=== PATIENT | male | born 1980 | race Caucasian/White ===

== ENCOUNTER → 2016-03-17 | Outpatient (CLI) | payer OTHER ==
[~2016-03-17] MED LIST: AZIT250T5 PO; BACL10TA PO; CLON0.5T3 PO; CLR10 PO; CYCL1POW PO; ESOM20CA PO; LAMO100T16 PO; MELO15TA3 PO; MELO15TA4 PO; ONDA4TAB7 SL; ONDA8TAB12 PO; PANT1TAB48 PO; TRAM-10 PO
--- NOTE | 2016-03-17 17:47 | DIAGNOSTIC IMAGING REPORT ---
KUB CLINICAL HISTORY: R31.9 Hematuria pain COMPARISON STUDY: 04/24/2013 FINDINGS: Scoliosis of the lumbar spine. Mild nonobstructive ileus. No abnormal urinary tract calcifications within limitations of overlying bowel content. IMPRESSION: Negative study. Mild nonobstructive ileus. Electronically signed by: Toy Iraheta M.D. 03/17/2016 5:46 PM Dictated Date/Time: 03/17/2016 5:45 PM
[2016-03-17 18:14] LABS: BASO % 0.3 %; BASO ABS # 0.02 K/uL (0-0.2); COMPLETE YES; EOS % 2.8 %; HEMATOCRIT 42.4 % (42-52); IG% 0.5 %; LYMPH % 38.3 %; LYMPH ABS # 2.31 K/uL (1.2-3.4); MEAN CORPUSCULAR HGB CONC 33.7 g/dl (32-36); MEAN PLATELET VOLUME 11.8 fL (7.4-10.4); MONO % 8.3 %; NEUT % 49.8 %; PLATELET COUNT 169 K/uL (130-400); RED BLOOD COUNT 4.61 M/uL (4.7-6.1); WHITE BLOOD COUNT 6.03 K/uL (4.8-10.8)
[2016-03-17 18:47] LABS: ALT/SGPT 28 U/L (12-78); BLOOD UREA NITROGEN 27 mg/dl (7-18); BUN/CREATININE RATIO 30.8 (10-20); CALCIUM 9.5 mg/dl (8.5-10.1); CARBON DIOXIDE 27 mmol/L (21-32); CHLORIDE 106 mmol/L (98-107); CREATININE 0.87 mg/dl (0.60-1.40); GLUCOSE 89 mg/dl (70-99); POTASSIUM 3.7 mmol/L (3.5-5.1); SODIUM 142 mmol/L (136-145)
[2016-03-17 18:50] LABS: ALB/GLOB RATIO 0.9 (0.9-2); ALKALINE PHOSPHATASE 100 U/L (45-117); AST/SGOT 24 U/L (15-37)
== END | disposition home or self-care (01) ==
LOC: C.RAD 17:09
PROVIDERS: ATTEND Family Medicine
DX: R31.9 Hematuria, unspecified (principal)

== ENCOUNTER → 2016-05-18 | Outpatient (CLI) | payer OTHER ==
[~2016-05-18] MED LIST changes: +AZIT-60 PO; -AZIT250T5 PO
--- NOTE | 2016-05-18 14:17 | DIAGNOSTIC IMAGING REPORT ---
AP CHEST WITH RIGHT-SIDED RIB SERIES CLINICAL HISTORY: Rib deformity. FINDINGS: An AP chest radiograph with 4 additional views from a right-sided rib series is compared to study dated 03/19/11. The AP view is degraded by patient rotation. The cardiomediastinal silhouette is unremarkable. There are low lung volumes. The lungs and pleural spaces are clear. No pneumothorax is seen. There is no radiographic evidence of right-sided rib fracture on the rib series. The remainder of the bony thorax is grossly intact. There is moderate S-shaped spinal scoliosis which deforms the thoracic cage. Moderate fecal retention is noted in the right colon. IMPRESSION: 1. The lungs are clear. 2. There is no radiographic evidence of right-sided rib fracture. 3. Moderate S-shaped spinal scoliosis. Electronically signed by: Lew Hurley M.D. 05/18/2016 2:15 PM Dictated Date/Time: 05/18/2016 2:11 PM
== END | disposition home or self-care (01) ==
LOC: C.RADBC 12:06
PROVIDERS: ATTEND Family Medicine
DX: M95.4 Acquired deformity of chest and rib (principal); M41.9 Scoliosis, unspecified

== ENCOUNTER 2016-07-24 14:48 | Emergency (ER) | payer OTHER ==
[~2016-07-24] VITALS: Ht 172.7 cm; Wt 60.0 kg
[~2016-07-24 14:48] MED LIST changes: -AZIT-60 PO; -ESOM20CA PO; -MELO15TA4 PO; -ONDA8TAB12 PO
[2016-07-24 14:56] VITALS: TEMP 36.7; Ht 172.7 cm; Wt 60.0 kg
[2016-07-24] MEDS ORDERED: ESOM20CA PO (15:23)
[2016-07-24] MEDS ORDERED: ONDA8TAB12 PO (15:23)
[2016-07-24] MEDS ORDERED: MELO15TA4 PO (15:23)
[2016-07-24] MEDS ORDERED: KETOROLAC TROMETHAMINE 30 MG/ML VIAL IV STA (15:51)
[2016-07-24] MEDS ORDERED: TRAMADOL HCL 50 MG TAB PO STA (15:51)
[2016-07-24 16:19] LABS: BASO % 0.4 %; BASO ABS # 0.02 K/uL (0-0.2); COMPLETE YES; EOS % 3.9 %; HEMATOCRIT 37.6 % (42-52); IG% 0.4 %; LYMPH % 42.1 %; LYMPH ABS # 2.38 K/uL (1.2-3.4); MEAN CELL VOLUME 93.1 fL (80-100); MEAN CORPUSCULAR HEMOGLOBIN 30.9 pg (25-34); MEAN CORPUSCULAR HGB CONC 33.2 g/dl (32-36); MEAN PLATELET VOLUME 10.9 fL (7.4-10.4); MONO % 9.4 %; NEUT % 43.8 %; PLATELET COUNT 165 K/uL (130-400); RED BLOOD COUNT 4.04 M/uL (4.7-6.1); WHITE BLOOD COUNT 5.65 K/uL (4.8-10.8)
[2016-07-24 16:31] LABS: ZZURINE CULT IF INDIC CATH NO
[2016-07-24 16:33] LABS: URINE COLOR DK YELLOW
[2016-07-24 16:35] LABS: MANUAL MICROSCOPIC REQUIRED? NO; REVIEW REQ? NO; URINE APPEARANCE CLEAR (CLEAR); URINE SPECIFIC GRAVITY > 1.035 (1.000-1.030)
[2016-07-24 16:36] LABS: URINE BILIRUBIN NEG (NEG); URINE NITRITE NEG (NEG); UROBILINOGEN NEG (NEG)
[2016-07-24 16:37] LABS: BUN/CREATININE RATIO 35.1 (10-20); CREATININE 0.84 mg/dl (0.60-1.40); POTASSIUM 3.7 mmol/L (3.5-5.1)
[2016-07-24 17:52] LABS: CALCIUM 9.2 mg/dl (8.5-10.1)
--- NOTE | 2016-07-24 18:13 | DIAGNOSTIC IMAGING REPORT ---
LUMBAR SPINE CT CT DOSE: HISTORY: back pain TECHNIQUE: Multiaxial CT images of the lumbar spine were performed and reformatted in the sagittal and coronal plane without the use of contrast. COMPARISON: None. FINDINGS: Mild motion artifact. Moderate to severe levoscoliosis. Bilateral L5 spondylolysis with grade I spondylolisthesis. Vertebral body heights are maintained. No acute fractures identified. The visualized sacrum appears intact. No significant central canal narrowing by CT technique. Paraspinal soft tissues are unremarkable. Disc spaces are preserved. IMPRESSION: 1. No fracture or subluxation within the lumbar spine. 2. Moderate to severe levoscoliosis. 3. Bilateral L5 spondylolysis with grade I anterolisthesis. Electronically signed by: Israel Charles M.D. 07/24/2016 6:11 PM Dictated Date/Time: 07/24/2016 6:09 PM
--- NOTE | 2016-07-24 18:18 | DIAGNOSTIC IMAGING REPORT ---
ABDOMEN AND PELVIS CT WITHOUT CONTRAST CT DOSE: 1071.19 mGy.cm HISTORY: back pain/patient nonverbal TECHNIQUE: Multiaxial CT images of the abdomen and pelvis were performed without the use of intravenous and oral contrast according to the standard department stone protocol. COMPARISON STUDY: Abdomen and pelvis CT 03/20/2011. FINDINGS: Patchy areas of consolidation within the right middle and lower lobe. There are also multiple patchy groundglass opacities within the lung bases. This is consistent with pneumonia, possibly secondary to aspiration. No pneumoperitoneum. No pneumatosis. Levoscoliosis of the thoracolumbar spine. The unenhanced liver, spleen, adrenal glands, and kidneys are unremarkable. The pancreas is within normal limits. The gallbladder is not well visualized due to streak artifact from the patient's arms. There are surgical clips within the epigastric location. Motion artifact resulting in suboptimal evaluation of the bowel. The bladder is unremarkable. No retroperitoneal lymphadenopathy. No dilated loops of small bowel to suggest an obstruction. The appendix is not well visualized due to the motion artifact. Suboptimal evaluation for bowel pathology due to the lack of intravenous and oral contrast. Moderate to large amount well-formed stool seen within the colon. There are suggestion of mild thickening of the rectum. IMPRESSION: 1. Bibasilar airspace opacities consistent with a pneumonia. This is progressed in the interval. This could be due to aspiration. 2. There appears to be mild thickening of the rectum consistent with a nonspecific proctitis. 3. Levoscoliosis. 4.: Colorectal fecal retention. Electronically signed by: Israel Charles M.D. 07/24/2016 6:17 PM Dictated Date/Time: 07/24/2016 6:12 PM
[2016-07-24 18:32] VITALS: BP 107/58; PULSE 71; O2SAT 96
--- NOTE | 2016-07-24 18:38 | DIAGNOSTIC IMAGING REPORT ---
THORACIC SPINE 3 VIEWS HISTORY: back pain/history scoliosis COMPARISON: Chest 05/18/2016. FINDINGS: There is no fracture. No subluxation. S-shaped scoliosis of the thoracic spine. Patchy bibasilar airspace opacities. Surgical clips within the left upper quadrant. IMPRESSION: No fracture or subluxation within the thoracic spine. Moderate S-shaped scoliosis of the thoracic spine. Bibasilar airspace opacities consistent with a pneumonia. Electronically signed by: Israel Charles M.D. 07/24/2016 6:37 PM Dictated Date/Time: 07/24/2016 6:36 PM
[2016-07-24] MEDS ORDERED: AZIT-60 PO (18:53)
--- NOTE | 2016-07-24 18:54 | EMERGENCY ROOM VISIT NOTE ---
History First contact with patient: 15:26 Chief Complaint: BACK PAIN Stated Complaint: BACK PAIN History of Present Illness The patient is a 36 year old male who presents to the Emergency Room with complaints of back pain. The patient is nonverbal. 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 The patient does not ambulate on his own and he is incontinent. The patient also has a history of scoliosis. The patient is accompanied by his mother and grandmother. They are his caretakers. They state that over the last 2 weeks he has had increased back pain. They normally can tell when he has back pain he leans to the right in his wheelchair and grimaces. They have been giving him his tramadol and muscle relaxer without any relief. He had 50 mg of tramadol and a baclofen just prior to coming to the emergency room today. They have not noticed any blood in his diapers. He has grimaced when he has been urinating. The patient has a history of UTI but no history of kidney stone. The patient does not have a fever. Review of Systems 6 system review was performed and was negative unless stated otherwise in history of present illness. Past Medical/Surgical History Medical Problems: (1) Anemia (2) Fundoplication (3) Gastroesophageal reflux disease (4) Mental retardation (5) MGUS (monoclonal gammopathy of unknown significance) (6) Seizure disorder (7) Thrombocytopenia Social History Smoking Status: Never Smoker Alcohol Use: none Marital Status: single Housing Status: lives with family Current/Historical Medications Scheduled Baclofen (Lioresal), 10 MG PO HS Clonazepam (Klonopin), 0.5 MG PO QID Esomeprazole Magnesium (Nexium), 20 MG PO BID Lamotrigine (Lamictal), 100 MG PO BID Meloxicam (Mobic), 15 MG PO DAILY Ondansetron Hcl (Zofran), 8 MG PO PRN Tramadol (Ultram), 50 MG PO TID Allergies Coded Allergies: Morphine (Verified Allergy, Mild, 07/24/16) SHALLOW RESP POLLEN (Verified Allergy, Unknown, HAY FEVER, 07/24/16) Diazepam (Verified Adverse Reaction, Mild, "MAKES HIM WILD", 07/24/16) Physical Exam Vital Signs Date Time Temp Pulse Resp B/P (MAP) Pulse Ox O2 Delivery O2 Flow Rate FiO2 07/24/16 18:32 71 12 107/58 96 07/24/16 16:55 78 14 110/58 96 07/24/16 14:56 36.7 89 18 115/77 96 Room Air Physical Exam GENERAL: 36-year-old white male is nonverbal but appears in no acute distress. MENTAL Status:. The patient is awake and alert. NECK: Supple, no lymphadenopathy noted. No carotid bruits noted. LUNGS: Clear auscultation without wheezes rales or rhonchi. CARDIAC: Regular rate and rhythm without murmur. Pulses is full and equal throughout. BACK: No CVA tenderness noted ABDOMEN: Positive bowel sounds all 4 quadrants. Soft, nontender to palpation without organomegaly or masses. LUMBAR SPINE: Shaped scoliosis noted. The patient does not grimace when I palpate the spine or the paravertebral regions. Limited exam secondary the patient's health status. Medical Decision & Procedures ER Provider Diagnostic Interpretation: THORACIC SPINE 3 VIEWS HISTORY: back pain/history scoliosis COMPARISON: Chest 05/18/2016. FINDINGS: There is no fracture. No subluxation. S-shaped scoliosis of the thoracic spine. Patchy bibasilar airspace opacities. Surgical clips within the left upper quadrant. IMPRESSION: No fracture or subluxation within the thoracic spine. Moderate S-shaped scoliosis of the thoracic spine. Bibasilar airspace opacities consistent with a pneumonia. Electronically signed by: Israel Charles M.D. 07/24/2016 6:37 PM Dictated Date/Time: 07/24/2016 6:36 PM ABDOMEN AND PELVIS CT WITHOUT CONTRAST CT DOSE: 1071.19 mGy.cm HISTORY: back pain/patient nonverbal TECHNIQUE: Multiaxial CT images of the abdomen and pelvis were performed without the use of intravenous and oral contrast according to the standard department stone protocol. COMPARISON STUDY: Abdomen and pelvis CT 03/20/2011. FINDINGS: Patchy areas of consolidation within the right middle and lower lobe. There are also multiple patchy groundglass opacities within the lung bases. This is consistent with pneumonia, possibly secondary to aspiration. No pneumoperitoneum. No pneumatosis. Levoscoliosis of the thoracolumbar spine. The unenhanced liver, spleen, adrenal glands, and kidneys are unremarkable. The pancreas is within normal limits. The gallbladder is not well visualized due to streak artifact from the patient's arms. There are surgical clips within the epigastric location. Motion artifact resulting in suboptimal evaluation of the bowel. The bladder is unremarkable. No retroperitoneal lymphadenopathy. No dilated loops of small bowel to suggest an obstruction. The appendix is not well visualized due to the motion artifact. Suboptimal evaluation for bowel pathology due to the lack of intravenous and oral contrast. Moderate to large amount well-formed stool seen within the colon. There are suggestion of mild thickening of the rectum. IMPRESSION: 1. Bibasilar airspace opacities consistent with a pneumonia. This is progressed in the interval. This could be due to aspiration. 2. There appears to be mild thickening of the rectum consistent with a nonspecific proctitis. 3. Levoscoliosis. 4.: Colorectal fecal retention. Electronically signed by: Israel Charles M.D. 07/24/2016 6:[address] DOSE: HISTORY: back pain TECHNIQUE: Multiaxial CT images of the lumbar spine were performed and reformatted in the sagittal and coronal plane without the use of contrast. COMPARISON: None. FINDINGS: Mild motion artifact. Moderate to severe levoscoliosis. Bilateral L5 spondylolysis with grade I spondylolisthesis. Vertebral body heights are maintained. No acute fractures identified. The visualized sacrum appears intact. No significant central canal narrowing by CT technique. Paraspinal soft tissues are unremarkable. Disc spaces are preserved. IMPRESSION: 1. No fracture or subluxation within the lumbar spine. 2. Moderate to severe levoscoliosis. 3. Bilateral L5 spondylolysis with grade I anterolisthesis. Electronically signed by: Israel Charles M.D. 07/24/2016 6:11 PM Laboratory Results 07/24/16 16:10 Red Blood Count 4.04, Mean Corpuscular Volume 93.1, Mean Corpuscular Hemoglobin 30.9, Mean Corpuscular Hemoglobin Concent 33.2, Mean Platelet Volume 10.9, Neutrophils (%) (Auto) 43.8, Lymphocytes (%) (Auto) 42.1, Monocytes (%) (Auto) 9.4, Eosinophils (%) (Auto) 3.9, Basophils (%) (Auto) 0.4, Neutrophils # (Auto) 2.48, Lymphocytes # (Auto) 2.38, Monocytes # (Auto) 0.53, Eosinophils # (Auto) 0.22, Basophils # (Auto) 0.02 07/24/16 16:10 Test 07/24/16 16:05 07/24/16 16:10 Urine Color DK YELLOW Urine Appearance CLEAR (CLEAR) Urine pH 5.0 (4.5-7.5) Urine Specific [place] > 1.035 (1.000-1.030) Urine Protein NEG (NEG) Urine Glucose (UA) NEG (NEG) Urine Ketones TRACE (NEG) Urine Occult Blood NEG (NEG) Urine Nitrite NEG (NEG) Urine Bilirubin NEG (NEG) Urine Urobilinogen NEG (NEG) Urine Leukocyte Esterase NEG (NEG) White Blood Count 5.65 K/uL (4.8-10.8) Red Blood Count 4.04 M/uL (4.7-6.1) Hemoglobin 12.5 g/dL (14.0-18.0) Hematocrit 37.6 % (42-52) Mean Corpuscular Volume 93.1 fL (80-100) Mean Corpuscular Hemoglobin 30.9 pg (25-34) Mean Corpuscular Hemoglobin Concent 33.2 g/dl (32-36) Platelet Count 165 K/uL (130-400) Mean Platelet Volume 10.9 fL (7.4-10.4) Neutrophils (%) (Auto) 43.8 % Lymphocytes (%) (Auto) 42.1 % Monocytes (%) (Auto) 9.4 % Eosinophils (%) (Auto) 3.9 % Basophils (%) (Auto) 0.4 % Neutrophils # (Auto) 2.48 K/uL (1.4-6.5) Lymphocytes # (Auto) 2.38 K/uL (1.2-3.4) Monocytes # (Auto) 0.53 K/uL (0.11-0.59) Eosinophils # (Auto) 0.22 K/uL (0-0.5) Basophils # (Auto) 0.02 K/uL (0-0.2) RDW Standard Deviation 44.8 fL (36.4-46.3) RDW Coefficient of Variation 13.1 % (11.5-14.5) Immature Granulocyte % (Auto) 0.4 % Immature Granulocyte # (Auto) 0.02 K/uL (0.00-0.02) Anion Gap 8.0 mmol/L (3-11) Est Creatinine Clear Calc Drug Dose 102.2 ml/min Estimated GFR () 129.6 Estimated GFR (Non- 111.9 BUN/Creatinine Ratio 35.1 (10-20) Calcium Level 9.2 mg/dl (8.5-10.1) Medications Administered Medications (Trade) Dose Ordered Sig/Leana Route Start Time Stop Time Status Last Admin Dose Admin Ketorolac Tromethamine (Toradol Inj) 30 mg NOW STAT IV 07/24/16 15:51 07/24/16 15:55 DC 07/24/16 16:12 30 MG Tramadol HCl (Ultram Tab) 50 mg NOW STAT PO 07/24/16 15:51 07/24/16 15:55 DC 07/24/16 16:44 50 MG ED Course The patient's EMR and medication list were reviewed. The patient was catheterized to obtain a urinalysis which was negative. IV access was obtained. CBC differential, renal profile was ordered. X-ray of the thoracic and lumbar spine was ordered and interpreted by the radiologist and myself as above without any acute bony abnormality.. CT stone survey was ordered and interpreted by the radiologist as above with findings consistent with bibasilar pneumonia.. The patient was given Toradol 30 mg IV and tramadol 50 mg by mouth. Labs are reviewed and were unremarkable. White count was normal. The patient's mother was informed of the findings. The patient was given Zithromax 500 mg by mouth while in the emergency room. The patient was discharged home in stable condition. Medical Decision Differential diagnosis include pain from scoliosis, fracture, muscle strain, kidney stones, UTI, pyelonephritis, pleuritic chest pain The decision was made to evaluate with a CT since the patient is nonverbal. Pneumonia was not in the differential but was noted on CAT scan. I discussed with the mother the findings and she stated that he normally sits up to eat. He did have a sore throat a week and a half ago. Impression Primary Impression: Pneumonia Departure Information Dispostion Home / Self-Care Condition GOOD Prescriptions Azithromycin (ZITHROMAX) 250 Mg Tab 250 MG PO DAILY, #4 TAB Prov: Nayla Iraheta PA-C 07/24/16 Referrals Filippo Love D.O.[facility] (PCP) Forms HOME CARE DOCUMENTATION FORM, IMPORTANT VISIT INFORMATION Patient Instructions ED Pneumonia Adult, My [facility] Additional Instructions Take Zithromax as prescribed. May increase dose of tramadol to 100 mg 3 times a day. If needed. Follow-up with your family doctor Wednesday or Wednesday for reevaluation. Problem Qualifiers Primary Impression: Pneumonia Pneumonia type: due to unspecified organism Laterality: bilateral Lung location: lower lobe of lung Qualified Codes: J18.9 - Pneumonia, unspecified organism
[2016-07-24] MEDS ORDERED: AZITHROMYCIN 250 MG TAB PO ONE (19:00)
== END 2016-07-24 19:08 | disposition home or self-care (01) ==
LOC: C.EDB 14:50 → C.EDC 19:08
DX: J18.9 Pneumonia, unspecified organism (principal); Q93.5 Other deletions of part of a chromosome; F79 Unspecified intellectual disabilities; G40.909 Epilepsy, unspecified, not intractable, without status epilepticus; K21.9 Gastro-esophageal reflux disease without esophagitis; D47.2 Monoclonal gammopathy; D69.6 Thrombocytopenia, unspecified; Z79.899 Other long term (current) drug therapy

== ENCOUNTER → 2016-09-22 | Outpatient (CLI) | payer OTHER ==
[~2016-09-22] MED LIST changes: -CLR10 PO; -CYCL1POW PO; +ESOM20CA PO; -MELO15TA3 PO; +MELO15TA4 PO; -ONDA4TAB7 SL; +ONDA8TAB12 PO; -PANT1TAB48 PO
[2016-09-22 17:39] LABS: BASO % 0.5 %; BASO ABS # 0.03 K/uL (0-0.2); COMPLETE YES; EOS % 2.3 %; HEMATOCRIT 40.8 % (42-52); IG% 0.2 %; LYMPH % 36.7 %; LYMPH ABS # 2.26 K/uL (1.2-3.4); MEAN CELL VOLUME 93.4 fL (80-100); MEAN CORPUSCULAR HEMOGLOBIN 31.4 pg (25-34); MEAN CORPUSCULAR HGB CONC 33.6 g/dl (32-36); MEAN PLATELET VOLUME 12.7 fL (7.4-10.4); MONO % 9.6 %; NEUT % 50.7 %; PLATELET COUNT 147 K/uL (130-400); RED BLOOD COUNT 4.37 M/uL (4.7-6.1); WHITE BLOOD COUNT 6.15 K/uL (4.8-10.8)
[2016-09-22 17:42] LABS: BLOOD UREA NITROGEN 26 mg/dl (7-18); CREATININE 0.91 mg/dl (0.60-1.40); GLUCOSE 86 mg/dl (70-99)
[2016-09-22 17:43] LABS: ALT/SGPT 26 U/L (12-78); AST/SGOT 21 U/L (15-37); CALCIUM 9.4 mg/dl (8.5-10.1); CARBON DIOXIDE 30 mmol/L (21-32); CHLORIDE 106 mmol/L (98-107); POTASSIUM 3.9 mmol/L (3.5-5.1); SODIUM 140 mmol/L (136-145)
[2016-09-22 17:48] LABS: ALKALINE PHOSPHATASE 87 U/L (45-117)
== END | disposition home or self-care (01) ==
LOC: C.LABPBG 13:17
PROVIDERS: ATTEND Family Medicine
DX: D47.2 Monoclonal gammopathy (principal)

== ENCOUNTER 2017-02-27 14:24 | Emergency (ER) | payer OTHER ==
[~2017-02-27] VITALS: Ht 172.7 cm; Wt 60.0 kg
[~2017-02-27 14:24] MED LIST changes: -ESOM20CA PO; -MELO15TA4 PO; -ONDA8TAB12 PO
[2017-02-27 14:28] VITALS: BP 102/59; TEMP 36.7; Ht 172.7 cm; Wt 60.0 kg
--- NOTE | 2017-02-27 14:59 | EMERGENCY ROOM VISIT NOTE ---
History Report prepared by Krystle: Nasreen Lo Under the Supervision of: Dr. Amando Pelaez M.D. First contact with patient: 14:46 Chief Complaint: FEVER Stated Complaint: NOT FELLING WELL AND FEVER History of Present Illness The patient is a 37 year old male who presents to the Emergency Room with complaints of a persistent fever since this morning. He is accompanied by his Mother. Mom reports he has had congestion for the past 1 week. Last night he complained of a sore throat, and this morning he developed a fever, which was 101 degrees when checked at home. He last had 1000 mg of Tylenol at 1300 today. Mom denies any cough. She reports the patient has been eating and drinking and normally but seems to be generally fatigued. The patient did receive a flu shot this year. Mom denies any recent sick contacts. She also denies any nausea, vomiting or diarrhea. The patient has a history of Angelman's syndrome, a seizure disorder, but Mom denies any recent seizures. This afternoon Mom took the patient to [facility], but states they did not accept his insurance, so she brought him here. Mom denies any recent redness or swelling of the arms or legs. Source of History: parent (Mother) History Limited By: other (patient is nonverbal) Onset: This morning Position: other (global) Timing: other (persistent) Modifying Factors (Relieving): tylenol Associated Symptoms: + sorethroat, No cough, No nausea, No vomiting, No diarrhea Review of Systems See HPI for pertinent positives & negatives. A total of 10 systems reviewed and were otherwise negative. Past Medical & Surgical Medical Problems: (1) Anemia (2) Fundoplication (3) Gastroesophageal reflux disease (4) Mental retardation (5) MGUS (monoclonal gammopathy of unknown significance) (6) Seizure disorder (7) Thrombocytopenia Old medical records were reviewed. Nurse's notes were reviewed and I agree with. Social History Smoking Status: Never Smoker Alcohol Use: none Drug Use: none Marital Status: single Housing Status: lives with family Occupation Status: unemployed Current/Historical Medications Scheduled Amoxicillin & Pot Clavulanate (Augmentin 875-125 mg), 875 MG PO BID Baclofen (Lioresal), 10-20 MG PO HS Clonazepam (Klonopin), 0.5 MG PO QID Esomeprazole Magnesium (Nexium), 20 MG PO BID Lamotrigine (Lamictal), 100 MG PO BID Meloxicam (Mobic), 15 MG PO DAILY Ondansetron Hcl (Zofran), 8 MG PO PRN Tramadol (Ultram), 50 MG PO TID Allergies Coded Allergies: Morphine (Verified Allergy, Mild, 07/24/16) SHALLOW RESP POLLEN (Verified Allergy, Unknown, HAY FEVER, 07/24/16) Diazepam (Verified Adverse Reaction, Mild, "MAKES HIM WILD", 07/24/16) Physical Exam Vital Signs Date Time Temp Pulse Resp B/P (MAP) Pulse Ox O2 Delivery O2 Flow Rate FiO2 02/27/17 17:07 60 20 98 02/27/17 14:28 36.7 58 20 102/59 98 Room Air Physical Exam General: Non-ill appearing young male who has baseline Angelman's syndrome, opens eyes, smiles and is interactive but otherwise nonverbal, baseline contractures of arms and legs. HEENT: Normal cephalic atraumatic. Pupils are equal round and reactive to light. Extraocular movements are intact. Oropharynx is pink with moist mucous membranes. No swelling of the mouth lips or tongue. Neck: Supple with a midline trachea. No meningeal signs or stiffness, no JVD or bruits. No Stridor. Chest: Clear to auscultation bilaterally. No wheezes or rhonchi. No increased work of breathing. Heart: regular rate and rhythm. Abdomen: Soft nontender, nondistended without rebound guarding or rigidity. Extremities: No cyanosis clubbing or edema. No calf tenderness or assymetry Spine/Back. Non tender to palpation. No CVA tenderness Skin: Good turgor without rashes. Neurologic exam: Cranial nerves two through 12 are intact. Motor and sensation are intact and symmetrical throughout. Medical Decision & Procedures ER Provider Diagnostic Interpretation: Radiology results as stated below per my review and radiologist interpretation: SINGLE VIEW CHEST CLINICAL HISTORY: Atypical chest pain. FINDINGS: An AP, portable, upright chest radiograph is compared to study dated 03/19/2011. The examination is degraded by portable technique and patient rotation. The cardiomediastinal silhouette is unremarkable. There is chronic elevation of the right hemidiaphragm and bibasilar atelectasis. No airspace consolidation or large pleural effusion is identified. No pneumothorax is seen. The skeletal structures appear osteopenic. There is moderate S-shaped thoracal lumbar scoliosis. Surgical clips are seen in the left upper quadrant. IMPRESSION: No acute cardiopulmonary abnormality. Electronically signed by: Lew Hurley M.D. 02/27/2017 3:11 PM Laboratory Results 02/27/17 15:31 Red Blood Count 4.55, Mean Corpuscular Volume 94.3, Mean Corpuscular Hemoglobin 31.6, Mean Corpuscular Hemoglobin Concent 33.6, Mean Platelet Volume 11.8, Neutrophils (%) (Auto) 53.7, Lymphocytes (%) (Auto) 35.3, Monocytes (%) (Auto) 7.6, Eosinophils (%) (Auto) 2.7, Basophils (%) (Auto) 0.4, Neutrophils # (Auto) 4.18, Lymphocytes # (Auto) 2.74, Monocytes # (Auto) 0.59, Eosinophils # (Auto) 0.21, Basophils # (Auto) 0.03 02/27/17 15:31 Test 02/27/17 15:31 White Blood Count 7.77 K/uL (4.8-10.8) Red Blood Count 4.55 M/uL (4.7-6.1) Hemoglobin 14.4 g/dL (14.0-18.0) Hematocrit 42.9 % (42-52) Mean Corpuscular Volume 94.3 fL (80-100) Mean Corpuscular Hemoglobin 31.6 pg (25-34) Mean Corpuscular Hemoglobin Concent 33.6 g/dl (32-36) Platelet Count 148 K/uL (130-400) Mean Platelet Volume 11.8 fL (7.4-10.4) Neutrophils (%) (Auto) 53.7 % Lymphocytes (%) (Auto) 35.3 % Monocytes (%) (Auto) 7.6 % Eosinophils (%) (Auto) 2.7 % Basophils (%) (Auto) 0.4 % Neutrophils # (Auto) 4.18 K/uL (1.4-6.5) Lymphocytes # (Auto) 2.74 K/uL (1.2-3.4) Monocytes # (Auto) 0.59 K/uL (0.11-0.59) Eosinophils # (Auto) 0.21 K/uL (0-0.5) Basophils # (Auto) 0.03 K/uL (0-0.2) RDW Standard Deviation 42.1 fL (36.4-46.3) RDW Coefficient of Variation 12.4 % (11.5-14.5) Immature Granulocyte % (Auto) 0.3 % Immature Granulocyte # (Auto) 0.02 K/uL (0.00-0.02) Anion Gap 5.0 mmol/L (3-11) Est Creatinine Clear Calc Drug Dose 94.4 ml/min Estimated GFR () 125.1 Estimated GFR (Non- 108.0 BUN/Creatinine Ratio 26.0 (10-20) Calcium Level 9.7 mg/dl (8.5-10.1) Total Bilirubin 0.2 mg/dl (0.2-1) Direct Bilirubin < 0.1 mg/dl (0-0.2) Aspartate Amino Transf (AST/SGOT) 23 U/L (15-37) Alanine Aminotransferase (ALT/SGPT) 27 U/L (12-78) Alkaline Phosphatase 88 U/L (45-117) Total Protein 8.2 gm/dl (6.4-8.2) Albumin 4.0 gm/dl (3.4-5.0) Lipase 156 U/L (73-393) Influenza Type A Antigen Neg for Influ A (NEG) Influenza Type B Antigen Neg for Influ B (NEG) Laboratory studies as stated above per my review. ED Course 1448: Past medical records reviewed. The patient was evaluated in room C7, and a complete history and physical examination were performed. 1630: I reevaluated the patient. He appears comfortable. I discussed his results so far with his Mother and she verbalized complete understanding and agreement. 1645: Augmentin 875 mg 1 homepack PO. Medical Decision The differential diagnoses considered include pneumonia, sinusitis, influenza, URI and electrolyte or metabolic abnormality. This patient comes in as described above. He has a history of Angelman syndrome and his mother says that he had a fever today. He had some nasal congestion. He is difficult to evaluate. He does not appear to be toxic. He is afebrile here. IV access established blood work was obtained. Chest x-ray does not show any evidence of infection influenza was negative. His tympanic membranes are normal appearing. He has nothing to suggest meningitis or sepsis. He has no acute electrolyte or metabolic abnormalities. I talked to his mother .he has had some sinus symptoms. I will put him on antibiotics and will also cover strep and ENT type infections. He was given Augmentin 875 mg twice a day. He should return if: worsening of symptoms, any new problems or concerns. Follow-up with his doctor Wednesday for recheck. Medication Reconcilliation Current Medication List: was personally reviewed by me Blood Pressure Screening Patient's blood pressure: Low blood pressure Impression Primary Impression: Sinusitis Additional Impression: URI (upper respiratory infection) Scribe Attestation The scribe's documentation has been prepared under my direction and personally reviewed by me in its entirety. I confirm that the note above accurately reflects all work, treatment, procedures, and medical decision making performed by me. Departure Information Dispostion Home / Self-Care Prescriptions Amoxicillin & Pot Clavulanate (Augmentin 875-125 mg) 1 Tab Tab 875 MG PO BID for 7 Days, #14 TAB Prov: Amando Pelaez M.D. 02/27/17 Referrals Becki Cronin DO (PCP) Patient Instructions My [facility] Additional Instructions Rest Drink plenty of fluids Use Augmentin 875 mg twice a day for 7 days Return if: Worsening of symptoms, not tolerating fluids, any new problems or concerns Follow-up with your doctor Wednesday for recheck or return here over the weekend if symptoms worsen Problem Qualifiers
--- NOTE | 2017-02-27 15:12 | DIAGNOSTIC IMAGING REPORT ---
SINGLE VIEW CHEST CLINICAL HISTORY: Atypical chest pain. FINDINGS: An AP, portable, upright chest radiograph is compared to study dated 03/19/2011. The examination is degraded by portable technique and patient rotation. The cardiomediastinal silhouette is unremarkable. There is chronic elevation of the right hemidiaphragm and bibasilar atelectasis. No airspace consolidation or large pleural effusion is identified. No pneumothorax is seen. The skeletal structures appear osteopenic. There is moderate S-shaped thoracal lumbar scoliosis. Surgical clips are seen in the left upper quadrant. IMPRESSION: No acute cardiopulmonary abnormality. Electronically signed by: Lew Hurley M.D. 02/27/2017 3:11 PM Dictated Date/Time: 02/27/2017 3:10 PM
[2017-02-27] MEDS ORDERED: MELO15TA4 PO (15:23)
[2017-02-27] MEDS ORDERED: ESOM20CA PO (15:23)
[2017-02-27] MEDS ORDERED: ONDA8TAB12 PO (15:23)
[2017-02-27 15:43] LABS: BASO % 0.4 %; BASO ABS # 0.03 K/uL (0-0.2); EOS % 2.7 %; EOS ABS # 0.21 K/uL (0-0.5); HEMATOCRIT 42.9 % (42-52); HEMOGLOBIN 14.4 g/dL (14.0-18.0); IG# 0.02 K/uL (0.00-0.02); LYMPH % 35.3 %; LYMPH ABS # 2.74 K/uL (1.2-3.4); MEAN CELL VOLUME 94.3 fL (80-100); MEAN CORPUSCULAR HEMOGLOBIN 31.6 pg (25-34); MEAN CORPUSCULAR HGB CONC 33.6 g/dl (32-36); MEAN PLATELET VOLUME 11.8 fL (7.4-10.4); MONO % 7.6 %; MONO ABS # 0.59 K/uL (0.11-0.59); NEUT % 53.7 %; NEUT ABS # 4.18 K/uL (1.4-6.5); PLATELET COUNT 148 K/uL (130-400); RED CELL DISTRIBUTION WIDTH CV 12.4 % (11.5-14.5); RED CELL DISTRIBUTION WIDTH SD 42.1 fL (36.4-46.3); WHITE BLOOD COUNT 7.77 K/uL (4.8-10.8)
[2017-02-27 16:00] LABS: ALT/SGPT 27 U/L (12-78); BLOOD UREA NITROGEN 23 mg/dl (7-18); CALCIUM 9.7 mg/dl (8.5-10.1); CARBON DIOXIDE 31 mmol/L (21-32); GLUCOSE 91 mg/dl (70-99); LIPASE 156 U/L (73-393); POTASSIUM 4.1 mmol/L (3.5-5.1); SODIUM 138 mmol/L (136-145)
[2017-02-27 16:03] LABS: ALKALINE PHOSPHATASE 88 U/L (45-117); AST/SGOT 23 U/L (15-37); TOTAL PROTEIN 8.2 gm/dl (6.4-8.2)
[2017-02-27 16:25] LABS: INFLUENZA B ANTIGEN Neg for Influ B (NEG)
[2017-02-27] MEDS ORDERED: AMOXICIL/CLAVU 875MG HOME PACK PO ONE (16:45)
[2017-02-27] MEDS ORDERED: AMOX875T PO (16:46)
[2017-02-27 17:07] VITALS: PULSE 60; O2SAT 98
== END 2017-02-27 17:12 | disposition home or self-care (01) ==
LOC: C.EDB 14:26 → C.EDC 17:12
DX: J32.9 Chronic sinusitis, unspecified (principal); J06.9 Acute upper respiratory infection, unspecified; F79 Unspecified intellectual disabilities; G40.909 Epilepsy, unspecified, not intractable, without status epilepticus; D47.2 Monoclonal gammopathy; Z79.899 Other long term (current) drug therapy

== ENCOUNTER → 2017-09-27 | Outpatient (CLI) | payer OTHER ==
[~2017-09-27] MED LIST changes: -CLON0.5T3 PO; +ESOM20CA PO; +KLN/5 PO; +MELO-84 PO; +ONDA8TAB12 PO
[2017-09-27 16:58] LABS: BASO % 0.2 %; BASO ABS # 0.01 K/uL (0-0.2); EOS % 2.9 %; EOS ABS # 0.15 K/uL (0-0.5); HEMATOCRIT 41.4 % (42-52); HEMOGLOBIN 13.6 g/dL (14.0-18.0); IG# 0.01 K/uL (0.00-0.02); LYMPH % 45.8 %; LYMPH ABS # 2.36 K/uL (1.2-3.4); MEAN CELL VOLUME 93.5 fL (80-100); MEAN CORPUSCULAR HEMOGLOBIN 30.7 pg (25-34); MEAN CORPUSCULAR HGB CONC 32.9 g/dl (32-36); MEAN PLATELET VOLUME 12.3 fL (7.4-10.4); MONO ABS # 0.41 K/uL (0.11-0.59); NEUT % 42.9 %; NEUT ABS # 2.21 K/uL (1.4-6.5); PLATELET COUNT 181 K/uL (130-400); RED CELL DISTRIBUTION WIDTH SD 44.8 fL (36.4-46.3); WHITE BLOOD COUNT 5.15 K/uL (4.8-10.8)
[2017-09-27 17:24] LABS: ALBUMIN 4.1 gm/dl (3.4-5.0); ALKALINE PHOSPHATASE 92 U/L (45-117); ALT/SGPT 31 U/L (12-78); AST/SGOT 19 U/L (15-37); BLOOD UREA NITROGEN 28 mg/dl (7-18); CALCIUM 9.4 mg/dl (8.5-10.1); CARBON DIOXIDE 27 mmol/L (21-32); GLUCOSE 103 mg/dl (70-99); POTASSIUM 3.9 mmol/L (3.5-5.1); SODIUM 139 mmol/L (136-145); TOTAL PROTEIN 8.2 gm/dl (6.4-8.2)
== END | disposition home or self-care (01) ==
LOC: C.LABPBG 15:29
PROVIDERS: ATTEND Family Medicine
DX: Q93.5 Other deletions of part of a chromosome (principal); G40.909 Epilepsy, unspecified, not intractable, without status epilepticus; D47.2 Monoclonal gammopathy

== ENCOUNTER 2020-01-05 10:41 | Observation (INO) ==
[2020-01-05 11:49] LABS: Basophils # (auto) 0.01 K/uL (0-0.2); Basophils % (auto) 0.1 %; Eosinophils # (auto) 0.08 K/uL (0-0.5); Eosinophils % (auto) 0.4 %; Hematocrit (blood only) 38.5 % (42-52); Hemoglobin 12.8 g/dL (14.0-18.0); Immature Granulocytes # (auto) 0.05 K/uL (0.00-0.02); Immature Granulocytes % (auto) 0.3 %; Lymphocytes # (auto) 1.63 K/uL (1.2-3.4); Lymphocytes % (auto) 8.4 %; Mean Corpuscular Hemoglobin 31.1 pg (25-34); Mean Corpuscular Hgb Conc 33.2 g/dL (32-36); Mean Corpuscular Volume 93.4 fL (80-100); Mean Platelet Volume 10.9 fL (7.4-10.4); Monocytes # (auto) 1.42 K/uL (0.11-0.59); Monocytes % (auto) 7.3 %; Neutrophils # (auto) 16.22 K/uL (1.4-6.5); Neutrophils % (auto) 83.5 %; Platelet Count 191 K/uL (130-400); RDW Coefficient of Variation 12.6 % (11.5-14.5); RDW Standard Deviation 42.8 fL (36.4-46.3); Red Blood Count 4.12 M/uL (4.7-6.1); White Blood Count 19.41 K/uL (4.8-10.8)
[2020-01-05 11:56] LABS: Appearance Urine Cloudy (Clear); Bacteria Urine Automated 3+ (Negative); Bilirubin Urine Negative (Negative); Blood Urine 3+ (Negative); Color Urine Dark Yellow; Glucose Urine UA Negative (Negative); Ketones Urine Negative (Negative); Leukocyte Esterase Urine 2+ (Negative); Nitrite Urine Positive (Negative); Protein Urine 1+ (Negative); Specific Gravity Urine 1.037 (1.000-1.030); Urobilinogen Urine Negative (Negative); WBC Urine Automated >30 /hpf (0-5); pH Urine 5.5 (4.5-7.5)
[2020-01-05] MEDS ORDERED: SULFAMETHOXAZOLE/TRIMETHOPRIM DS 800/160MG TAB PO ONE (11:56)
[2020-01-05] MEDS ORDERED: cefTRIAXone SODIUM 2,000 MG/70 ML BAG IV STA (11:56)
[2020-01-05 12:06] LABS: Alanine Aminotransferase 47 U/L (12-78); Albumin Level 3.4 gm/dl (3.4-5.0); Aspartate Aminotransferase 30 U/L (15-37); BUN Creatinine Ratio 30.2 (10-20); Blood Urea Nitrogen 24 mg/dl (7-18); Calcium 9.7 mg/dl (8.5-10.1); Carbon Dioxide 31 mmol/L (21-32); Chloride 102 mmol/L (98-107); Est GFR (African American) 129.5; Est GFR (Non-African American) 111.7; Glucose 107 mg/dl (70-99); Lipase 92 U/L (73-393); Potassium 3.9 mmol/L (3.5-5.1); Sodium 137 mmol/L (136-145)
[2020-01-05 12:09] LABS: Albumin Globulin Ratio 0.7 (0.9-2); Alkaline Phosphatase 121 U/L (45-117); Bilirubin,Total 0.2 mg/dl (0.2-1); Globulin 5.1 gm/dl (2.5-4.0); Total Protein 8.5 gm/dl (6.4-8.2)
[2020-01-05 12:12] LABS: Mucus Urine Present (None Prsent)
[2020-01-05 12:13] LABS: RBC Urine Automated >30 /hpf (0-4)
--- NOTE | 2020-01-05 12:38 | Ultrasound Report ---
TESTICULAR ULTRASOUND HISTORY: Left scrotal swelling. Pt c/o scrotal pain COMPARISON: None. FINDINGS: Right testis: 2.3 x 2.2 x 2.0 cm. There are no intratesticular masses. Normal color flow. No hydrocel e. The epididymis is unremarkable. Left testis: 4.0 x 3.2 x 3.3 cm. No testicular masses. Complex septated moderate hydrocele. Heterogen eous and thickened epididymis. There is increased color flow within the left epididymis and left test is. IMPRESSION: 1. Above findings consistent with left-sided epididymoorchitis. There is a complex moderate left hydr ocele/pyocele. 2. Normal right testis. ACT 112: Negative or not required by law. Electronically signed by: Israel Charles M.D. 01/05/2020 12:37 PM
[2020-01-05] MEDS ORDERED: PIPERACILL/TAZOBAC CONSULT ACTIVE PRN ×2 (12:51→13:01)
[2020-01-05] MEDS ORDERED: PIPERACILLIN/TAZOBACTAM 4.5 GM/120 ML BAG IV ONE ×2 (12:51→13:01)
[2020-01-05] MEDS ORDERED: IOVERSOL 100ml IV ONE (12:53)
[2020-01-05] MEDS ORDERED: DAPTOmycin 425 MG in SYRINGE 0 ML IV ONE (13:01)
[2020-01-05] MEDS ORDERED: levoFLOXacin/D5W 750 MG/150 ML BAG IV STA (13:01)
--- NOTE | 2020-01-05 13:13 | CT Scan Report ---
CT OF THE ABDOMEN AND PELVIS WITH CONTRAST CLINICAL HISTORY: Abdominal pain, concern for pyelonephritis. COMPARISON STUDY: CT of the abdomen and pelvis July 24, 2016. TECHNIQUE: Following IV administration of 94 mL of Optiray-320, axial images of the abdomen and pelvi s were obtained from the lung bases to the proximal femurs. Images were reviewed in the axial, sagitt al, and coronal planes. IV contrast was administered without complication. Automated exposure contro l was utilized for the study. A dose lowering technique was utilized adhering to the principles of A GUS. CT DOSE: 491.56 mGy.cm FINDINGS: Visualized portions of the lower chest demonstrate moderate right middle lobe and bilateral lower lobe airspace opacities which contains foci of fat. No pneumatosis, free air or portal venous gas is present. Levoscoliosis is again noted. 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 The liver, spleen, adrenal glands, kidneys and pancreas are unremarkable. Ther e is no perinephric infiltration. There is no hydronephrosis. There is no renal abscess. There is no evidence for a bowel obstruction. A moderate amount stool is noted. Note is made of moderate wall thi ckening of the mid to distal sigmoid colon and the rectum with evidence for hyperemia. There is no ly mphadenopathy. No ascites. Major vasculature is patent. IMPRESSION: 1. Multifocal airspace opacities within the lower lungs which contain foci of fat. This favors lipoid pneumonia often seen in the setting of aspiration. 2. Moderate wall thickening of the mid to distal sigmoid colon and rectum with evidence for hyperemia . This represents a nonspecific proctocolitis. No bowel obstruction. Moderate amount of stool. 3. No renal abscess. No hydronephrosis. Unremarkable CT appearance of the kidneys. ACT 112: Negative or not required by law. Electronically signed by: Abelardo Pace M.D. 01/05/2020 1:12 PM
[2020-01-05] MEDS ORDERED: MAGNESIUM CITRATE 296 ML/BTL PO STA (13:35)
--- NOTE | 2020-01-05 13:42 | History & Physical Report ---
Date of Service January 05, 2020 Assessment & Plan (1) Epididymoorchitis: - Admit to med surg - Failed outpatient abx with cipro and macrobid, Continue on IV antibiotics of zosyn and doxycycline to cover micro as well as pulmonary with aspiration pneumonia. Will check a MRSA swab to rule out. - Testicular US reviewed as well as abd/pelvis CT - Consult urology - Dr. Ramirez - discussed the case with him - VSS at this time, pt mother reports good oral intake earlier today, no signs o f sepsis currently - Leukocytosis at 19K, afebrile here with reports of low grade fever at 100.7 and 99.4 starting last evening, continue tylenol prn (2) Pyocele: - Hydrocele vs pyocele - treating with IV antibiotics as above - Urology consult (3) Proctocolitis: - As per imaging, pt with chronic constipation, will order bowel regimen - mother reports gives for suppositories daily to assist in BMs. May continue if no BM after 48 hrs, last BM was last night. (4) Aspiration pneumonia: - CT abd/pelvis shows bases of lung zabala with possible lipoid formation in the setting of aspiration pneumonia - pt mother reports having no sx of pneumonia even when diagnosed during past hospitalizations and found to have pna, so will order antibiotics as above with zosyn IV to cover anaerobes in this setting as well as . 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 Brother also helps occasionally. (6) MGUS (monoclonal gammopathy of unknown significance): - Hx of such (7) Anemia: - H&H 12.8/38.5, slightly lower than last values in mid October with 14/42.9 - Monitor am cbc (8) Seizure disorder: - Hx of such, continue lamotrigine 100 mg BID - Stable (9) GERD without esophagitis: - Continue omeprazole 40 mg QPM (10) Chronic back pain: - Hx of such, continue tramadol 50 mg TID prn (11) Scoliosis: - Noted stable DVT ppx: - teds, lovenox subq CODE: Full Dispo: From home, likely to remain in the hospital x 1-2 days History of Present Illness Primary Care Provider: Becki Cronin DO This is a 39 yo M with PMhx of Angelman syndrome, MGUS, scoliosis, seizure disorder, anemia, thrombocytopenia, GERD, chronic constipation, who presents after mother noticed swollen scrotum and called urologist, who referred the patient to the ER. Mother was given prescriptions for macrobid and cipro for outpatient treatment within the past few weeks for UTI and he completed both antibiotics as individual courses. Yesterday patient developed a low-grade fever of 100.7, took Tylenol which improved the fever, then had recurrence of fever this morning with temp of 99.4. She was unsure if there was true scrotal swelling present yesterday, however this morning when diaper was being changed he appeared to be uncomfortable, and swelling appeared more obvious as well as redness. Mother notes that he previously has not shown many symptoms when he has been very ill, his main complaint is back pain when he develops a pneumonia, or has fever when something else infectious is going on. Pt himself is nonverbal and therefore unable to provide any history. He is primarily wheelchair-bound, he is a full assist, and has at home with his mother and father who take care of him full-time. U/S of testes shows left-sided epididymoorchitis and a complex moderate left hydrocele/pyocele. CT of the abdomen/pelvis multifocal airspace opacities within the lower lungs which contain foci of fate, favoring lipoid pneumonia seen in the setting of aspiration. There is moderated wall thickening of the mid to distal sigmoid colon and rectum with evidence for hyperemia. This represents a nonspecific proctocolitis. No bowel obstruction. Moderate amount of stool. No hydronephrosis, no renal abscess. Allergies Allergy/AdvReac Type Severity Reaction Status Date / Time morphine Allergy Mild Verified 01/05/20 13:17 pollen extracts Allergy Unknown HAY FEVER Verified 01/05/20 13:17 diazepam AdvReac Mild "MAKES HIM Verified 01/05/20 13:17 WILD" Home Medications Medication Instructions Recorded Confirmed Type ondansetron 8 mg PO Q8H PRN 08/18/18 01/05/20 History lamotrigine 100 mg tablet 100 mg PO BID #60 tab 08/30/19 01/05/20 Rx baclofen 10 mg tablet 10 mg PO .COMPLEX #60 tab 09/14/19 01/05/20 Rx tramadol 50 mg tablet 50 mg PO TID PRN #90 tab 11/15/19 01/05/20 Rx zolpidem 10 mg tablet 10 mg PO HS #30 tab 11/16/19 01/05/20 Rx Wheelchair (Manual or Powered) See Rx Instructions .ROUTE 12/14/19 01/05/20 Rx .COMPLEX #1 ea clonazepam 0.5 mg PO TID 01/05/20 01/05/20 History meloxicam 15 mg PO QAM 01/05/20 01/05/20 History omeprazole 40 mg PO QPM 01/05/20 01/05/20 History bisacodyl 5 mg PO DAILY #30 tab 01/07/20 Rx bisacodyl 10 mg MD DAILY PRN #30 ea 01/07/20 Rx doxycycline hyclate 100 mg PO BID 5 Days #10 cap 01/07/20 Rx polyethylene glycol 3350 [Miralax] 17 g PO DAILY #30 ea 01/07/20 Rx sulfamethoxazole-trimethoprim 1 tab PO BID #20 tab 01/07/20 Rx [Bactrim DS] Past Med/Surg History Medical History Allergic rhinitis Anemia Angelman syndrome Chronic back pain Chronic constipation GERD without esophagitis Insomnia MGUS (monoclonal gammopathy of unknown significance) Nasal vestibulitis Scoliosis Seborrheic dermatitis Seizure disorder Surgical History History of ankle surgery History of Karine fundoplication Hx of tonsillectomy Family History Grandfather (Paternal) Myocardial infarction Arthritis Cancer Bladder Father Arthritis Grandmother (Maternal) MGUS (monoclonal gammopathy of unknown significance) Denies family history of Ovarian cancer Prostate cancer Breast cancer Lung cancer Social History Smoking Status: Never smoker Hx Alcohol Use: No Hx Substance Use: No Preferred Language: Malagasy Communication Ability: Impaired Visual Impairment: Diminished Hearing Ability: Normal 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 Beliefs That Will Affect Care: Buddhist Buddhist Beliefs: [employer]es marital status: Single Current Living Situation: Family current occupational status: disabled Feels Safe at Home: Yes Childhood Exposure to Second-Hand Smoke: No Physical Activity Frequency: Does not Exercise Physical Activity Frequency Comment: due to physical condition Seatbelt Use: always Assistive Devices: None Review of Systems Review of Systems: Constitutional: No fever, sweats or chills Eyes: No diplopia, no worsening or blurred vision ENT: normal hearing, no trouble swallowing, normal appetite Respiratory: No cough, sputum, dyspnea at rest or on exertion Cardiovascular: No chest pain, tightness or palpitations Abdomen: No pain, nausea, vomiting, diarrhea, + chronic constipation, last BM was last evening, small. : Scrotal swelling and erythema as per HPI Musculoskeletal: No joint pain, calf pain, swelling Neurologic: + Does not walk at baseline, no specific weakness, numbness/tingling. Psychiatric: No anxiety or depression Skin: No rash or itch Physical Exam Physical Exam: General: awake, alert, no apparent distress, nonverbal Head: Normocephalic, atraumatic ENT: PERRL, EOMI, no pharyngeal exudate, mucous membranes moist Chest: Diminished breath sounds right base, on room air, + faint rhonchi, no rales or wheeze Cardiac: Regular rate and rhythm, no murmur, no JVD, normal peripheral pulses, good capillary refill Abdominal: NABS x 4 quadrants, soft, nondistended, nontender to palpation, no rebound or guarding : Scrotal erythema, edema on the right, tender with palpation of spermatic cord Extremities: + BLE muscular atrophy, no peripheral edema or erythema, calfs nontender to palpation Psych: flat affect Neuro: Awake, appears alert, looks at mother throughout exam, nonverbal, unable to participate in history, strength intact bilaterally and rated 4/5 in upper extremities, does not walk at baseline Results & Data Results & Data ([facility]) Vital Signs (Past 12 Hours) Vital Signs Temp Pulse Resp BP Pulse Ox 01/05/20 10:45 36.4 C L 91 H 22 128/[address] OF THE ABDOMEN AND PELVIS WITH CONTRAST CLINICAL HISTORY: Abdominal pain, concern for pyelonephritis. COMPARISON STUDY: CT of the abdomen and pelvis July 24, 2016. TECHNIQUE: Following IV administration of 94 mL of Optiray-320, axial images of the abdomen and pelvis were obtained from the lung bases to the proximal femurs. Images were reviewed in the axial, sagittal, and coronal planes. IV contrast was administered without complication. Automated exposure control was utilized for the study. A dose lowering technique was utilized adhering to the principles of ALARA. CT DOSE: 491.56 mGy.cm FINDINGS: Visualized portions of the lower chest demonstrate moderate right middle lobe and bilateral lower lobe airspace opacities which contains foci of fat. No pneumatosis, free air or portal venous gas is present. Levoscoliosis is again noted. 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 The liver, spleen, adrenal glands, kidneys and pancreas are unremarkable. There is no perinephric infiltration. There is no hydronephrosis. There is no renal abscess. There is no evidence for a bowel obstruction. A moderate amount stool is noted. Note is made of moderate wall thickening of the mid to distal sigmoid colon and the rectum with evidence for hyperemia. There is no lymphadenopathy. No ascites. Major vasculature is patent. IMPRESSION: 1. Multifocal airspace opacities within the lower lungs which contain foci of fat. This favors lipoid pneumonia often seen in the setting of aspiration. 2. Moderate wall thickening of the mid to distal sigmoid colon and rectum with evidence for hyperemia. This represents a nonspecific proctocolitis. No bowel obstruction. Moderate amount of stool. 3. No renal abscess. No hydronephrosis. Unremarkable CT appearance of the kidneys. TESTICULAR ULTRASOUND HISTORY: Left scrotal swelling. Pt c/o scrotal pain COMPARISON: None. FINDINGS: Right testis: 2.3 x 2.2 x 2.0 cm. There are no intratesticular masses. Normal color flow. No hydrocele. The epididymis is unremarkable. Left testis: 4.0 x 3.2 x 3.3 cm. No testicular masses. Complex septated moderate hydrocele. Heterogeneous and thickened epididymis. There is increased color flow within the left epididymis and left testis. IMPRESSION: 1. Above findings consistent with left-sided epididymoorchitis. There is a complex moderate left hydrocele/pyocele. 2. Normal right testis. Code Status & VTE Plan Code Status Full code-discussed with patient's mother at bedside Supervising Physician Co-Signing Physician Notes I personally saw and examined the patient. I verified all rios points and agree with ELISEO Gordon with the following exceptions and/or additions: 39 year old male with Angelman's syndrome presents with scrotal swelling, fever and failed outpatient treatment for UTI O/E non septic appearing, scrotal swelling with erythema and fluctuance A/P Epididymoorchitis: IV Zosyn and doxycycline, consult urology Low suspicion of aspiration pneumonia as only clue to this is on imaging PG Care Time/CCT Total # of Minutes Spent Total Time Spent with Patient: Total time spent is greater than 50% in coordination of care (as documented) at patient's floor/unit and/or counseling patient: Coding Level of Care Code 09110 Initial Inpt Care Lvl 3 Diagnoses Epididymoorchitis N45.3 Pyocele N43.1 Proctocolitis K52.9 Aspiration pneumonia J69.0 Angelman syndrome Q93.51 MGUS (monoclonal gammopathy of unknown significance) D47.2 Anemia D64.9 Seizure disorder G40.909 GERD without esophagitis K21.9 Chronic back pain M54.9; G89.29 Scoliosis M41.9
[2020-01-05] MEDS ORDERED: DOXYCYCLINE HYCLATE 100 MG in DEXTROSE 5% 100 ML IV STA (14:44)
[2020-01-05] MEDS ORDERED: ONDANSETRON 8MG OD TAB PO PRN (16:40)
[2020-01-05] MEDS ORDERED: bisacodyL 10 MG SUPP PR PRN (16:40)
[2020-01-05] MEDS ORDERED: ONDANSETRON INJ 2 MG/ML 2 ML VIAL IV PRN (16:40)
[2020-01-05] MEDS ORDERED: ALBUT/IPRATROP 3MG/0.5MG NEB 3 ML VIAL NEB PRN (16:40)
[2020-01-05] MEDS ORDERED: ACETAMINOPHEN 325 MG TAB PO PRN (16:40)
[2020-01-05] MEDS: clonazePAM 0.5 MG TAB PO SCH ×2 (18:18→22:33)
[2020-01-05] MEDS: PIPERACILLIN/TAZOBACTAM 3.375 GM in DEXTROSE 5% 100 ML IV SCH (20:21)
[2020-01-05] MEDS: guaiFENesin 600 MG TABCR PO SCH (20:39)
[2020-01-05] MEDS: lamoTRIgine 100 MG TAB PO SCH (20:40)
[2020-01-05] MEDS: ZOLPIDEM TARTRATE 10 MG TAB PO SCH (20:40)
[2020-01-05] MEDS: PANTOprazole 40 MG TAB PO SCH (20:40)
[2020-01-05] MEDS ORDERED: BACLOFEN 10 MG TAB PO PRN (21:00)
[2020-01-06] MEDS: DOXYCYCLINE HYCLATE 100 MG in DEXTROSE 5% 100 ML IV SCH ×2 (04:10→15:47)
[2020-01-06] MEDS: PIPERACILLIN/TAZOBACTAM 3.375 GM in DEXTROSE 5% 100 ML IV SCH ×4 (06:26→21:30)
[2020-01-06 07:45] LABS: Hematocrit (blood only) 38.3 % (42-52); Hemoglobin 12.7 g/dL (14.0-18.0); Mean Corpuscular Hemoglobin 31.3 pg (25-34); Mean Corpuscular Hgb Conc 33.2 g/dL (32-36); Mean Corpuscular Volume 94.3 fL (80-100); Mean Platelet Volume 11.2 fL (7.4-10.4); Platelet Count 199 K/uL (130-400); RDW Coefficient of Variation 12.8 % (11.5-14.5); RDW Standard Deviation 44.2 fL (36.4-46.3); Red Blood Count 4.06 M/uL (4.7-6.1); White Blood Count 12.72 K/uL (4.8-10.8)
[2020-01-06 08:03] LABS: Albumin Level 2.9 gm/dl (3.4-5.0); BUN Creatinine Ratio 20.4 (10-20); Calcium 9.4 mg/dl (8.5-10.1); Creatinine Clr Calc Pharmacy 80.4 ml/min; Est GFR (African American) 103.6; Est GFR (Non-African American) 89.4; Potassium 3.4 mmol/L (3.5-5.1)
[2020-01-06 08:06] LABS: Albumin Globulin Ratio 0.6 (0.9-2); Bilirubin,Total 0.2 mg/dl (0.2-1); Globulin 4.7 gm/dl (2.5-4.0); Total Protein 7.6 gm/dl (6.4-8.2)
[2020-01-06] MEDS: traMADol HCL 50 MG TABLET PO PRN ×2 (09:06→20:42)
[2020-01-06] MEDS: POLYETHYLENE (MIRALAX) 17 GM PACK PO SCH (09:07)
[2020-01-06] MEDS: clonazePAM 0.5 MG TAB PO SCH ×3 (09:07→20:42)
[2020-01-06] MEDS: guaiFENesin 600 MG TABCR PO SCH ×2 (09:08→20:44)
[2020-01-06] MEDS: lamoTRIgine 100 MG TAB PO SCH ×2 (09:08→20:44)
[2020-01-06] MEDS: bisacodyL 5 MG TABEC PO SCH (09:08)
[2020-01-06] MEDS: MELOXICAM 7.5 MG TAB PO SCH (09:08)
[2020-01-06] MEDS: ENOXAPARIN INJ 40 MG/0.4 ML SYR SQ SCH (09:16)
--- NOTE | 2020-01-06 15:40 | Emergency Department Note ---
History of Present Illness General Chief complaint: Testicular Pain Stated complaint: TESTICULAR SWELLING Time Seen by Provider: 01/05/20 10:50 Source: family (mother), RN notes reviewed and old records reviewed Mode of arrival: ambulatory Limitations: physical limitation (Pt nonverbal) History of Present Illness Provider complaint: Swollen testicle Onset (ago): day(s) 1 Location: genitals Treatments prior to arrival: other (acetaminophen) This is a 39-year-old male who presents emergency department complaining of swollen scrotum. The patient's mother reports that the patient has a been treated for 2 urinary tract infections over the past week and had been placed on both Cipro as well as Macrobid. Mother reports yesterday she noticed his scrotum was swollen and that the patient appeared to be wincing when he was being changed. The patient himself is nonverbal. Home Medications Medication Instructions Recorded Confirmed Type ondansetron 8 mg PO Q8H PRN 08/18/18 01/05/20 History lamotrigine 100 mg tablet 100 mg PO BID #60 tab 08/30/19 01/05/20 Rx baclofen 10 mg tablet 10 mg PO .COMPLEX #60 tab 09/14/19 01/05/20 Rx tramadol 50 mg tablet 50 mg PO TID PRN #90 tab 11/15/19 01/05/20 Rx zolpidem 10 mg tablet 10 mg PO HS #30 tab 11/16/19 01/05/20 Rx ciprofloxacin HCl 500 mg tablet 500 mg PO BID 7 Days #14 tab 11/30/19 Rx nitrofurantoin 100 mg PO BID 7 Days #14 cap 12/04/19 Rx monohydrate/macrocrystals 100 mg capsule Wheelchair (Manual or Powered) See Rx Instructions .ROUTE 12/14/19 01/05/20 Rx .COMPLEX #1 ea clonazepam 0.5 mg PO TID 01/05/20 01/05/20 History meloxicam 15 mg PO QAM 01/05/20 01/05/20 History omeprazole 40 mg PO QPM 01/05/20 01/05/20 History Allergies Allergy/AdvReac Type Severity Reaction Status Date / Time morphine Allergy Mild Verified 01/05/20 13:17 pollen extracts Allergy Unknown HAY FEVER Verified 01/05/20 13:17 diazepam AdvReac Mild "MAKES HIM Verified 01/05/20 13:17 WILD" Past Med/Surg History Medical History Allergic rhinitis Anemia Angelman syndrome Chronic back pain Chronic constipation GERD without esophagitis Insomnia MGUS (monoclonal gammopathy of unknown significance) Nasal vestibulitis Scoliosis Seborrheic dermatitis Seizure disorder Surgical History History of ankle surgery History of Karine fundoplication Hx of tonsillectomy Family History Grandfather (Paternal) Myocardial infarction Arthritis Cancer Bladder Father Arthritis Grandmother (Maternal) MGUS (monoclonal gammopathy of unknown significance) Denies family history of Ovarian cancer Prostate cancer Breast cancer Lung cancer Social History Smoking Status: Never smoker Hx Alcohol Use: No Hx Substance Use: No Preferred Language: Armenian Communication Ability: Impaired Communication Ability Comment: nonverbal, comprehends short commands Visual Impairment: Diminished Hearing Ability: Normal Associate Counsel Required: No Beliefs That Will Affect Care: Confucianist Confucianist Beliefs: Jehova's Witnesses marital status: Single Current Living Situation: Family current occupational status: disabled Feels Safe at Home: Yes Childhood Exposure to Second-Hand Smoke: No Physical Activity Frequency: Does not Exercise Physical Activity Frequency Comment: due to physical condition Seatbelt Use: always Assistive Devices: None Review of Systems Unobtainable due to cognitive status Physical Exam VITAL SIGNS - Vital signs and nursing notes were reviewed. GENERAL - 39-year-old male appearing stated age who is in no acute distress, grabs at badge SKIN - Without rashes. HEAD - NC/AT. EYES - PERRL with EOMI bilaterally. Sclera anicteric. Palpebral conjunctiva pink and moist with no injection noted. NOSE - Midline and without cyanosis. No epistaxis or purulent drainage noted. Septum midline without deviation or septal hematoma noted. MOUTH/OROPHARYNX - Without perioral cyanosis. Buccal mucosa pink and moist and without leukoplakia. Tongue midline with equal elevation of palate bilaterally. No tonsillar hypertrophy, erythema, or exudates noted. dentition noted. NECK - Neck with FROM. Supple to palpation. lymphadenopathy noted. No nuchal rigidity. LUNGS - Chest wall symmetric without accessory muscle use, intercostals retractions, or central cyanosis. Normal vesicular breath sounds CTA B/L. No wheezes, rales, or rhonchi appreciated. CARDIAC - RRR with S1/S2. No murmur, rubs, or gallops appreciated. ABDOMEN - Abdominal contour without pulsations or visible masses. BS normoactive all four quadrants. No tenderness, palpable masses, hepatosplenomegaly, or ascites noted. : left testicle grossly swollen EXTREMITIES - No clubbing or peripheral cyanosis. No pretibial edema present. +3/5 radial, posterior tibial, and dorsalis pedis pulses palpated throughout. +5/5 strength noted in UE/LE bilaterally. NEUROLOGIC - Cranial nerves II through XII grossly intact. Sensory intact to light touch throughout. Patellar reflexes +2/4. Course Administered Medications Bisacodyl (Bisacodyl 5 Mg Tabec) 5 mg PO DAILY CINTHIA Stop: 02/05/20 08:59 Last Admin: 01/06/20 09:08 Dose: 5 mg Documented by: [id number] Clonazepam (Clonazepam 0.5 Mg Tab) 0.5 mg PO TID CINTHIA Stop: 02/04/20 16:39 Last Admin: 01/06/20 20:42 Dose: 0.5 mg Documented by: [id number] Admin: 01/06/20 14:22 Dose: 0.5 mg Documented by: [id number] Admin: 01/06/20 09:07 Dose: 0.5 mg Documented by: [id number] Admin: 01/05/20 22:33 Dose: 0.5 mg Documented by: [id number] Admin: 01/05/20 18:18 Dose: 0.5 mg Documented by: [id number] Enoxaparin Sodium (Enoxaparin Inj 40 Mg/0.4 Ml Syr) 40 mg SQ QAM CINTHIA Stop: 02/05/20 08:59 Last Admin: 01/06/20 09:16 Dose: 40 mg Documented by: [id number] Guaifenesin (Guaifenesin 600 Mg Tabcr) 1,200 mg PO Q12 CINTHIA Stop: 02/04/20 20:59 Last Admin: 01/06/20 20:44 Dose: 1,200 mg Documented by: [id number] Admin: 01/06/20 09:08 Dose: 1,200 mg Documented by: [id number] Admin: 01/05/20 20:39 Dose: 1,200 mg Documented by: [id number] Doxycycline Hyclate 100 mg/ (Dextrose) 110 mls @ 50 mls/hr IV Q12H CINTHIA; Protocol Stop: 01/13/20 03:59 Last Infusion: 01/07/20 05:25 Dose: 0 mls/hr Documented by: [id number] Admin: 01/07/20 03:09 Dose: 50 mls/hr Documented by: [id number] Infusion: 01/06/20 18:13 Dose: 0 mls/hr Documented by: [id number] Admin: 01/06/20 15:47 Dose: 50 mls/hr Documented by: [id number] Infusion: 01/06/20 06:22 Dose: 0 mls/hr Documented by: [id number] Admin: 01/06/20 04:10 Dose: 50 mls/hr Documented by: [id number] Piperacillin Sod/Tazobactam (Sod 3.375 gm/ Dextrose) 115 mls @ 28.75 mls/hr IV Q8H CINTHIA; Protocol Stop: 01/15/20 19:59 Last Admin: 01/07/20 05:23 Dose: 28.8 mls/hr Documented by: [id number] Infusion: 01/07/20 01:30 Dose: 0 mls/hr Documented by: [id number] Admin: 01/06/20 21:30 Dose: 28.8 mls/hr Documented by: [id number] Infusion: 01/06/20 15:46 Dose: 0 mls/hr Documented by: [id number] Admin: 01/06/20 12:04 Dose: 28.8 mls/hr Documented by: [id number] Infusion: 01/06/20 10:44 Dose: 0 mls/hr Documented by: [id number] Admin: 01/06/20 06:26 Dose: 28.8 mls/hr Documented by: [id number] Infusion: 01/06/20 00:25 Dose: 0 mls/hr Documented by: [id number] Admin: 01/05/20 20:21 Dose: 28.8 mls/hr Documented by: [id number] Lamotrigine (Lamotrigine 100 Mg Tab) 100 mg PO BID CINTHIA Stop: 02/04/20 20:59 Last Admin: 01/06/20 20:44 Dose: 100 mg Documented by: [id number] Admin: 01/06/20 09:08 Dose: 100 mg Documented by: [id number] Admin: 01/05/20 20:40 Dose: 100 mg Documented by: [id number] Meloxicam (Meloxicam 7.5 Mg Tab) 15 mg PO QAM CINTHIA Stop: 02/05/20 08:59 Last Admin: 01/06/20 09:08 Dose: 15 mg Documented by: [id number] Pantoprazole Sodium (Pantoprazole 40 Mg Tab) 40 mg PO QPM CINTHIA Stop: 02/04/20 20:59 Last Admin: 01/06/20 20:43 Dose: 40 mg Documented by: [id number] Admin: 01/05/20 20:40 Dose: 40 mg Documented by: [id number] Polyethylene Glycol (Polyethylene (Miralax) 17 Gm Pack) 17 gm PO DAILY CINTHIA Stop: 02/05/20 08:59 Last Admin: 01/06/20 09:07 Dose: 17 gm Documented by: [id number] Tramadol HCl (Tramadol Hcl 50 Mg Tablet) 50 mg PO TID PRN PRN Reason: pain Stop: 02/04/20 16:39 Last Admin: 01/06/20 20:42 Dose: 50 mg Documented by: [id number] Admin: 01/06/20 09:06 Dose: 50 mg Documented by: [id number] Zolpidem Tartrate (Zolpidem Tartrate 10 Mg Tab) 10 mg PO HS CINTHIA Stop: 02/04/20 20:59 Last Admin: 01/06/20 20:42 Dose: 10 mg Documented by: [id number] Admin: 01/05/20 20:40 Dose: 10 mg Documented by: [id number] Discontinued Medications Ceftriaxone Sodium (Rocephin) 2,000 mg in 70 mls @ 140 mls/hr IV NOW STA Stop: 01/05/20 12:25 Last Admin: 01/05/20 14:38 Dose: Not Given Documented by: [id number] Daptomycin 425 mg/ Syringe 8.5 mls @ 4.25 mls/min IV NOW ONE; Protocol Stop: 01/05/20 13:02 Last Admin: 01/05/20 14:39 Dose: 4.25 mls/min Documented by: [id number] Piperacillin Sod/Tazobactam Sod (Zosyn) 4.5 gm in 120 mls @ 240 mls/hr IV NOW ONE Stop: 01/05/20 13:30 Last Infusion: 01/05/20 15:12 Dose: 0 mls/hr Documented by: [id number] Admin: 01/05/20 14:41 Dose: 240 mls/hr Documented by: [id number] Levofloxacin/Dextrose (Levaquin/D5w) 750 mg in 150 mls @ 100 mls/hr IV NOW STA Stop: 01/05/20 14:30 Last Infusion: 01/05/20 17:39 Dose: 0 mls/hr Documented by: [id number] Infusion: 01/05/20 17:30 Dose: 100 mls/hr Documented by: [id number] Infusion: 01/05/20 16:00 Dose: 0 mls/hr Documented by: [id number] Admin: 01/05/20 15:18 Dose: 100 mls/hr Documented by: [id number] Doxycycline Hyclate 100 mg/ (Dextrose) 110 mls @ 50 mls/hr IV NOW STA Stop: 01/05/20 16:55 Last Infusion: 01/05/20 17:30 Dose: 0 mls/hr Documented by: [id number] Admin: 01/05/20 15:17 Dose: 50 mls/hr Documented by: [id number] Ioversol (Ioversol 100ml) 94 ml IV ONCE ONE Stop: 01/05/20 12:54 Last Admin: 01/05/20 12:54 Dose: 94 ml Documented by: [id number] Magnesium Citrate (Magnesium Citrate 296 Ml/Btl) 148 ml PO NOW STA Stop: 01/05/20 13:36 Last Admin: 01/05/20 14:43 Dose: 148 ml Documented by: [id number] Potassium Chloride (Potassium Chloride 10 Meq Tabcr) 10 meq PO NOW STA Stop: 01/06/20 19:42 Last Admin: 01/06/20 20:41 Dose: 10 meq Documented by: [id number] Trimethoprim/Sulfamethoxazole (Sulfamethoxazole/Trimethoprim Ds 800/160mg Tab) 1 tab PO NOW ONE Stop: 01/05/20 11:57 Last Admin: 01/05/20 14:38 Dose: Not Given Documented by: [id number] Critical Care Time I have personally spent greater than 30 minutes of critical care time in the direct management of this patient. This includes bedside care, interpretation of diagnostic studies, and testing, discussion with consultants, patient, and family members, and other required patient management activities. This 30 minutes is in excess of all separately billable procedures. Medical Decision Making Differential Diagnosis Appendicitis, testicular torsion, infections, diverticulitis, UTI, obstruction, mesenteric ischemia, aortic pathology, inflammatory bowel disease, renal colic, PUD, pancreatitis, biliary pathology, hernia, volvulus, constipation, as well as other pathologies. Medical Records Attestation: I reviewed the patient's medical records. Home Medications Current Medication List: was personally reviewed by me Laboratory Data Attestation: I reviewed the patient's lab results. Result diagrams: 01/07/20 06:20 01/06/20 07:15 Lab Results 01/05/20 01/05/20 01/05/20 Range/Units 11:30 11:30 11:30 WBC 19.41 H (4.8-10.8) K/uL RBC 4.12 L (4.7-6.1) M/uL Hgb 12.8 L (14.0-18.0) g/dL Hct 38.5 L (42-52) % MCV 93.4 (80-100) fL MCH 31.1 (25-34) pg MCHC 33.2 (32-36) g/dL RDW Std Deviation 42.8 (36.4-46.3) fL RDW Coeff of Kevin 12.6 (11.5-14.5) % Plt Count 191 (130-400) K/uL MPV 10.9 H (7.4-10.4) fL Immature Gran % (Auto) 0.3 % Neut % (Auto) 83.5 % Lymph % (Auto) 8.4 % Rapides % (Auto) 7.3 % Eos % (Auto) 0.4 % Baso % (Auto) 0.1 % Neut # (Auto) 16.22 H (1.4-6.5) K/uL Lymph # (Auto) 1.63 (1.2-3.4) K/uL Rapides # (Auto) 1.42 H (0.11-0.59) K/uL Eos # (Auto) 0.08 (0-0.5) K/uL Baso # (Auto) 0.01 (0-0.2) K/uL Immature Gran # (Auto) 0.05 H (0.00-0.02) K/uL Sodium 137 (136-145) mmol/L Potassium 3.9 (3.5-5.1) mmol/L Chloride 102 (98-107) mmol/L Carbon Dioxide 31 (21-32) mmol/L Anion Gap 4.0 (3-11) BUN 24 H (7-18) mg/dl Creatinine 0.80 (0.6-1.4) mg/dl Est Cr Clr Drug Dosing Not Reportable Est GFR ( Amer) 129.5 Est GFR (Non-Af Amer) 111.7 BUN/Creatinine Ratio 30.2 H (10-20) Glucose 107 H (70-99) mg/dl Calcium 9.7 (8.5-10.1) mg/dl Total Bilirubin 0.2 (0.2-1) mg/dl AST 30 (15-37) U/L ALT 47 (12-78) U/L Alkaline Phosphatase 121 H (45-117) U/L Total Protein 8.5 H (6.4-8.2) gm/dl Albumin 3.4 (3.4-5.0) gm/dl Globulin 5.1 H (2.5-4.0) gm/dl Albumin/Globulin Ratio 0.7 L (0.9-2) Lipase 92 (73-393) U/L Urine Color Dark Yellow Urine Appearance Cloudy A (Clear) Urine pH 5.5 (4.5-7.5) Ur Specific [place] 1.037 H (1.000-1.030) Urine Protein 1+ H (Negative) Urine Glucose (UA) Negative (Negative) Urine Ketones Negative (Negative) Urine Blood 3+ H (Negative) Urine Nitrite Positive A (Negative) Urine Bilirubin Negative (Negative) Urine Urobilinogen Negative (Negative) Ur Leukocyte Esterase 2+ H (Negative) Urine WBC (Auto) >30 H (0-5) /hpf Urine RBC (Auto) >30 H (0-4) /hpf U Hyaline Cast (Auto) 1-5 (0-5) /lpf U Epithel Cells (Auto) 10-20 H (0-5) /lpf Urine Bacteria (Auto) 3+ H (Negative) Urine Crystals Not Reportable Urine Mucus Present A (None Prsent) Urine Yeast Not Reportable Imaging Data Radiologist's Impression: [facility], [phone] CT Scan Report Patient: Belia HALL Date: 01/05/20#: [id number]: [address]Acct ID:[id number]: [facility]: 1980[facility] Zip[facility] [place], [place] [address]Lyi: 39Location: EDSex: MRoom/Bed:Att Phy:Diagnosis: TESTICULAR SWELLINGPri Phy: Becki Cronin, DOService Date: 01/05/20Fa Phy:Interpreting Phy: Abelardo Pace [facility] Phy: Ordering Phy: Jose Schuster MD cc: ~ CT OF THE ABDOMEN AND PELVIS WITH CONTRAST CLINICAL HISTORY: Abdominal pain, concern for pyelonephritis. COMPARISON STUDY: CT of the abdomen and pelvis July 24, 2016. TECHNIQUE: Following IV administration of 94 mL of Optiray-320, axial images of the abdomen and pelvis were obtained from the lung bases to the proximal femurs. Images were reviewed in the axial, sagittal, and coronal planes. IV contrast was administered without complication. Automated exposure control was utilized for the study. A dose lowering technique was utilized adhering to the principles of ALARA. CT DOSE: 491.56 mGy.cm FINDINGS: Visualized portions of the lower chest demonstrate moderate right middle lobe and bilateral lower lobe airspace opacities which contains foci of fat. No pneumatosis, free air or portal venous gas is present. Levoscoliosis is again noted. 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 The liver, spleen, adrenal glands, kidneys and pancreas are unremarkable. There is no perinephric infiltration. There is no hydronephrosis. There is no renal abscess. There is no evidence for a bowel obstruction. A moderate amount stool is noted. Note is made of moderate wall thickening of the mid to distal sigmoid colon and the rectum with evidence for hyperemia. There is no lymphadenopathy. No ascites. Major vasculature is patent. IMPRESSION: 1. Multifocal airspace opacities within the lower lungs which contain foci of fat. This favors lipoid pneumonia often seen in the setting of aspiration. 2. Moderate wall thickening of the mid to distal sigmoid colon and rectum with evidence for hyperemia. This represents a nonspecific proctocolitis. No bowel obstruction. Moderate amount of stool. 3. No renal abscess. No hydronephrosis. Unremarkable CT appearance of the kidneys. ACT 112: Negative or not required by law. Electronically signed by: Abelardo Pace M.D. 01/05/2020 1:12 PM Dictated: 01/05/20 1258Transcribed: 01/05/20 1310 [facility], [phone] Ultrasound Report Patient: Belia HALL Date: 01/05/20#: [id number]: [address]ct ID:[id number]: Date: 1980City Zip: [place], [place] [address]Mfl: 39Location: EDSex: MRoom/Bed:Att Phy:Diagnosis: TESTICULAR SWELLINGPri Phy: Becki Cronin, DOService Date: 01/05/20Fam Phy:Interpreting Phy: Israel Charles MDAdmit Phy: Ordering Phy: Jose Schuster MD cc: ~ TESTICULAR ULTRASOUND HISTORY: Left scrotal swelling. Pt c/o scrotal pain COMPARISON: None. FINDINGS: Right testis: 2.3 x 2.2 x 2.0 cm. There are no intratesticular masses. Normal color flow. No hydrocele. The epididymis is unremarkable. Left testis: 4.0 x 3.2 x 3.3 cm. No testicular masses. Complex septated moderate hydrocele. Heterogeneous and thickened epididymis. There is increased color flow within the left epididymis and left testis. IMPRESSION: 1. Above findings consistent with left-sided epididymoorchitis. There is a complex moderate left hydrocele/pyocele. 2. Normal right testis. ACT 112: Negative or not required by law. Electronically signed by: Israel Charles M.D. 01/05/2020 12:37 PM Dictated: 01/05/20 1235 MDM Narrative This is a 39-year-old male who presents emergency department having been on outpatient Macrobid and Cipro for urinary tract infection. Mother is concerned that the patient is having abdominal pain. He is nonverbal therefore he was sent for CAT scan of the abdomen pelvis as well as an ultrasound of the testicles this is concerning for a pyocele. I did discuss the case with the urologist who asked that the patient be started on broad-spectrum antibiotics. Based on this patient was started on Zosyn and Levaquin and daptomycin. I did discuss the case with the hospitalist service. In the meantime the patient was given magnesium citrate for his constipation. Patient was seen and evaluated as above in room B2. Review was performed of nursing notes and vital signs. I did review pertinent previous visits and michelle ent history. After obtaining a thorough history and physical examination the above work up was performed. An order was placed for continuous cardiac monitoring. The monitor shows a rate of 76 with Normal SInus rhythm. The patient was evaluated during the global COVID-19 pandemic, and that krzysztof gnosis was suspected/considered upon their initial presentation. Their evaluation, treatment and testing was consistent with current guidelines for patients who present with complaints or symptoms that may be related to COVID- 19. Impression & Plan Aspiration pneumonia, Pyocele, Proctocolitis, Epididymoorchitis Discharge Plan Visit Data Chief Complaint: Testicular Pain Stated Complaint: TESTICULAR SWELLING ED Provider: Jose Schuster Discharge Problem: Aspiration pneumonia, Pyocele, Proctocolitis, Epididymoorchitis Patient Disposition: Admitted As Inpatient Discharge Instructions Interventions: ED Discharge Assessment Last Done: 01/05/20 16:19 Discharge Problem: Aspiration pneumonia Qualifiers: Aspiration pneumonia type: unspecified Laterality: unspecified laterality Lung location: unspecified part of lung Qualified Code(s): J69.0 - Pneumonitis due to inhalation of food and vomit
--- NOTE | 2020-01-06 17:13 | Urology Consultation ---
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 Patient presented acutely ill with multiple issues including likely PNA and bowel issues. Discussed at length with father who is bedside. Found to have scrotal swelling and discomfort. Imaging completed including Scrotal u/s and CT abd/pelvis. Reviewed and interpreted by myself. Agree with medical treatment. Complex hydrocele with orchitis. Likely reactive. Discussed possible urinary issues and concerns. Will additionally recommend conservative management. Recommend scrotal support when ambulating, Scrotal elevation when sitting/laying flat, Ice (20 mins on/20 mins off) when acutely swollen or tender, Heating Pad (20 mins on/20 mins off) when sore, and avoidance of injury/protection when active. If acute episode develops, patient's family can call and be scheduled for cord block/steroid injection. May need intervention with surgical management if issue continue or do not respond to antibiotics in the next few weeks or months depending on success of therapy. May need workup for urinary issues. Likely UTI prior started issues. (2) Aspiration pneumonia: (3) Proctocolitis: History of Present Illness Attending Physician: Roman Bolanos, History of Present Illness New consultation for patient with Epididymitis and Orchitis with possible UTI, discomfort, and ill feelings. Had a UTI a few days prior to development of testicular issues. Had been on abx but had dose changed. Patient developed sudden onset of pain in scrotum and testicle going up and radiating into groin and back in waves comes and goes. Can be severe at times. Patient has signific ant developmental delay with Angelman's syndrome. Limited ability to answer but father at bedside who answered majority of questions. Discussed and reviewed patient's family history for any history of issues, infections, and disease. Also, discussed patient's medical/surgery history especially related to any history of urinary issues or stone disease. Patient was admitted and is undergoing observation with broad spectrum IV antibiotics. Allergies Allergy/AdvReac Type Severity Reaction Status Date / Time morphine Allergy Mild Verified 01/05/20 13:17 pollen extracts Allergy Unknown HAY FEVER Verified 01/05/20 13:17 diazepam AdvReac Mild "MAKES HIM Verified 01/05/20 13:17 WILD" Home Medications Medication Instructions Recorded Confirmed Type ondansetron 8 mg PO Q8H PRN 08/18/18 01/05/20 History lamotrigine 100 mg tablet 100 mg PO BID #60 tab 08/30/19 01/05/20 Rx baclofen 10 mg tablet 10 mg PO .COMPLEX #60 tab 09/14/19 01/05/20 Rx tramadol 50 mg tablet 50 mg PO TID PRN #90 tab 11/15/19 01/05/20 Rx zolpidem 10 mg tablet 10 mg PO HS #30 tab 11/16/19 01/05/20 Rx ciprofloxacin HCl 500 mg tablet 500 mg PO BID 7 Days #14 tab 11/30/19 Rx nitrofurantoin 100 mg PO BID 7 Days #14 cap 12/04/19 Rx monohydrate/macrocrystals 100 mg capsule Wheelchair (Manual or Powered) See Rx Instructions .ROUTE 12/14/19 01/05/20 Rx .COMPLEX #1 ea clonazepam 0.5 mg PO TID 01/05/20 01/05/20 History meloxicam 15 mg PO QAM 01/05/20 01/05/20 History omeprazole 40 mg PO QPM 01/05/20 01/05/20 History Patient History Medical History Allergic rhinitis Anemia Angelman syndrome Chronic back pain Chronic constipation GERD without esophagitis Insomnia MGUS (monoclonal gammopathy of unknown significance) Nasal vestibulitis Scoliosis Seborrheic dermatitis Seizure disorder Surgical History History of ankle surgery History of Karine fundoplication Hx of tonsillectomy Family History Grandfather (Paternal) Myocardial infarction Arthritis Cancer Bladder Father Arthritis Grandmother (Maternal) MGUS (monoclonal gammopathy of unknown significance) Denies family history of Ovarian cancer Prostate cancer Breast cancer Lung cancer Social History Smoking Status: Never smoker Hx Alcohol Use: No Hx Substance Use: No Preferred Language: Uzbek Communication Ability: Impaired Communication Ability Comment: nonverbal, comprehends short commands Visual Impairment: Diminished Hearing Ability: Normal Front Desk Monitor Required: No Beliefs That Will Affect Care: Congregation Congregation Beliefs: [employer]es marital status: Single Current Living Situation: Family current occupational status: disabled Feels Safe at Home: Yes Childhood Exposure to Second-Hand Smoke: No Physical Activity Frequency: Does not Exercise Physical Activity Frequency Comment: due to physical condition Seatbelt Use: always Assistive Devices: None Review of Systems Review of Systems: All systems reviewed & are unremarkable except as noted in HPI & below Physical Exam Physical Exam: General: Alert and responsive in no acute distress. Developmental delay and chronic issues secondary to Angelman's syndrome and seizure disorder. HEENT: Normocephalic Atraumatic. Inspection normal. Cranial Nerves 2-12 Grossly intact. Nares are clear. Neck is supple. Normal inspection of face. Normal inspection of neck. Neurologic: No deficits on inspection. Baseline for motor function and sensory. Psychologic: Baseline/Normal affect. Respiratory: Nonlabored. No use of accessory muscles. No tachypnea or dyspnea. Cardiovascular: No tachycardia Skin: [place] and Dry. No rashes or visible lesions. Extremities: Moving upper extremities without issues. wheelchair for mobility. Limited lower extremities. Abdomen: Soft Non-distended. No rebound or guarding. Results & Data ([facility]) Vital Signs (Past 12 Hours) Vital Signs Temp Pulse Resp BP BP Pulse Ox 01/06/20 15:54 36.9 C 95 H 18 109/75 95 01/06/20 08:20 36.7 C 76 18 156/68 H 96 01/06/20 07:47 36.6 C 91 H 16 107/64 96 PG Care Time/CCT Total # of Minutes Spent Total Time Spent with Patient: Total time spent is greater than 50% in coordination of care (as documented) at patient's floor/unit and/or counseling patient: Coding Level of Care Code 31933 Initial Inpt Care Lvl 3 Diagnoses Epididymoorchitis N45.3 Aspiration pneumonia J69.0 Proctocolitis K52.9
[2020-01-06] MEDS ORDERED: POTASSIUM CHLORIDE 10 MEQ TABCR PO STA (19:41)
--- NOTE | 2020-01-06 19:46 | Hospitalist Progress Note ---
Date of Service January 06, 2020 Assessment & Plan (1) Epididymoorchitis: - Failed outpatient abx with cipro and macrobid, Continue on IV antibiotics of zosyn and doxycycline to cover micro as well as pulmonary with aspiration pneumonia. Will check a MRSA swab to rule out. - Testicular US reviewed as well as abd/pelvis CT - Consult urology - Dr. Ramirez - Recommend scrotal elevation when sitting/laying flat, Ice (20 mins on/20 mins off) when acutely swollen or tender, Heating Pad (20 mins on/20 mins off) when sore, and avoidance of injury/protection when active. - Leukocytosis improving (2) Pyocele: - Hydrocele vs pyocele - treating with IV antibiotics as above - Urology consult - feels it is a complex hydrocele (3) Proctocolitis: - As per imaging, pt with chronic constipation, will order bowel regimen - mother reports gives for suppositories daily to assist in BMs. May continue if no BM after 48 hrs, last BM was last night. (4) Aspiration pneumonia: - CT abd/pelvis shows bases of lung zabala with possible lipoid formation in the setting of aspiration pneumonia - pt mother reports having no sx of pneumonia even when diagnosed during past hospitalizations and found to have pna, so will order antibiotics as above with zosyn IV to cover anaerobes in this setting as well as . 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 Brother also helps occasionally. (6) MGUS (monoclonal gammopathy of unknown significance): - Hx of such (7) Anemia: - stable (8) Seizure disorder: - Hx of such, continue lamotrigine 100 mg BID - Stable (9) GERD without esophagitis: - Continue omeprazole 40 mg QPM (10) Chronic back pain: - Hx of such, continue tramadol 50 mg TID prn (11) Scoliosis: - Noted stable DVT ppx: - teds, lovenox subq CODE: Full Dispo: From home, likely to remain in the hospital x 1-2 days Admission and Anticipated Discharge Date Admission Date: January 05, 2020 Subjective Mr. Robbins is non verbal but his father is at bedside and feels he is more comfortable appearing today Physical Exam Physical Exam: General: no distress Eyes: normal inspection, PERLL Respiratory: chest non tender, clear to auscultation, normal breath sounds, no respiratory distress, no accessory muscle use Cardiac: regular rate and rhythm, no rub or gallop, no murmur, no edema, no jvd GI/: active bowel sounds, no abd pain or tenderness, soft, non distended Extremities: normal range of motion, normal strength, non tender Neuro/Psych: alert, normal mood and affect Skin: normal color, dry Results & Data Results & Data ([facility]) Vital Signs (Past 12 Hours) Vital Signs Temp Pulse Resp BP BP Pulse Ox 01/06/20 15:54 36.9 C 95 H 18 109/75 95 01/06/20 08:20 36.7 C 76 18 156/68 H 96 01/06/20 07:47 36.6 C 91 H 16 107/64 96 PG Care Time/CCT Total # of Minutes Spent Total Time Spent with Patient: Total time spent is greater than 50% in coordination of care (as documented) at patient's floor/unit and/or counseling patient: Coding Level of Care Code 38736 Subseq Hosp Care Lvl 2 Diagnoses Epididymoorchitis N45.3 Pyocele N43.1 Proctocolitis K52.9 Aspiration pneumonia J69.0 Angelman syndrome Q93.51 MGUS (monoclonal gammopathy of unknown significance) D47.2 Anemia D64.9 Seizure disorder G40.909 GERD without esophagitis K21.9 Chronic back pain M54.9; G89.29 Scoliosis M41.9
[2020-01-06] MEDS: ZOLPIDEM TARTRATE 10 MG TAB PO SCH (20:42)
[2020-01-06] MEDS: PANTOprazole 40 MG TAB PO SCH (20:43)
[2020-01-07] MEDS: DOXYCYCLINE HYCLATE 100 MG in DEXTROSE 5% 100 ML IV SCH (03:09)
[2020-01-07] MEDS: PIPERACILLIN/TAZOBACTAM 3.375 GM in DEXTROSE 5% 100 ML IV SCH (05:23)
[2020-01-07 06:46] LABS: Hematocrit (blood only) 38.4 % (42-52); Hemoglobin 12.4 g/dL (14.0-18.0); Mean Corpuscular Hemoglobin 30.7 pg (25-34); Mean Corpuscular Hgb Conc 32.3 g/dL (32-36); Mean Platelet Volume 10.8 fL (7.4-10.4); Platelet Count 223 K/uL (130-400); RDW Coefficient of Variation 12.8 % (11.5-14.5); RDW Standard Deviation 44.7 fL (36.4-46.3); Red Blood Count 4.04 M/uL (4.7-6.1); White Blood Count 10.13 K/uL (4.8-10.8)
[2020-01-07 07:19] LABS: Albumin Level 2.9 gm/dl (3.4-5.0); BUN Creatinine Ratio 20.7 (10-20); Creatinine Clr Calc Pharmacy 93.9 ml/min; Potassium 3.9 mmol/L (3.5-5.1)
[2020-01-07 07:22] LABS: Albumin Globulin Ratio 0.6 (0.9-2); Bilirubin,Total 0.2 mg/dl (0.2-1); Total Protein 7.9 gm/dl (6.4-8.2)
[2020-01-07] MEDS: POLYETHYLENE (MIRALAX) 17 GM PACK PO SCH (09:18)
[2020-01-07] MEDS: clonazePAM 0.5 MG TAB PO SCH (09:18)
[2020-01-07] MEDS: traMADol HCL 50 MG TABLET PO PRN (09:18)
[2020-01-07] MEDS: lamoTRIgine 100 MG TAB PO SCH (09:19)
[2020-01-07] MEDS: guaiFENesin 600 MG TABCR PO SCH (09:19)
[2020-01-07] MEDS: bisacodyL 5 MG TABEC PO SCH (09:20)
[2020-01-07] MEDS: ENOXAPARIN INJ 40 MG/0.4 ML SYR SQ SCH (09:20)
[2020-01-07] MEDS: MELOXICAM 7.5 MG TAB PO SCH (09:20)
[2020-01-07] MEDS ORDERED: bisacodyL 10 MG SUPP PR STA (11:20)
--- NOTE | 2020-01-07 13:38 | Discharge Summary ---
Date of Service January 07, 2020 Admission HPI Per Admitting Provider This is a 39 yo M with PMhx of Angelman syndrome, MGUS, scoliosis, seizure disorder, anemia, thrombocytopenia, GERD, chronic constipation, who presents after mother noticed swollen scrotum and called urologist, who referred the patient to the ER. Mother was given prescriptions for macrobid and cipro for outpatient treatment within the past few weeks for UTI and he completed both antibiotics as individual courses. Yesterday patient developed a low-grade fever of 100.7, took Tylenol which improved the fever, then had recurrence of fever this morning with temp of 99.4. She was unsure if there was true scrotal swelling present yesterday, however this morning when diaper was being changed he appeared to be uncomfortable, and swelling appeared more obvious as well as redness. Mother notes that he previously has not shown many symptoms when he has been very ill, his main complaint is back pain when he develops a pneumonia, or has fever when something else infectious is going on. Pt himself is nonverbal and therefore unable to provide any history. He is primarily wheelchair-bound, he is a full assist, and has at home with his mother and father who take care of him full-time. U/S of testes shows left-sided epididymoorchitis and a complex moderate left hydrocele/pyocele. CT of the abdomen/pelvis multifocal airspace opacities within the lower lungs which contain foci of fate, favoring lipoid pneumonia seen in the setting of aspiration. There is moderated wall thickening of the mid to distal sigmoid colon and rectum with evidence for hyperemia. This represents a nonspecific proctocolitis. No bowel obstruction. Moderate amount of stool. No hydronephrosis, no renal abscess. Principal Diagnosis Epididimoorchitis Discharge Exam Constitutional WD/WN, vitals as above Respiratory normal respiratory effort, lungs clear to auscultation Cardiovascular RRR, no murmur, no edema Gastrointestinal (Abdomen) normal bowel sounds, soft, nontender, no hepatosplenomegaly Musculoskeletal generalized weakness, contractures Skin no rashes, warm and dry Neurologic moves all extremities and awake Psychiatric non verbal Discharge Data Allergies Allergy/AdvReac Type Severity Reaction Status Date / Time morphine Allergy Mild Verified 01/05/20 13:17 pollen extracts Allergy Unknown HAY FEVER Verified 01/05/20 13:17 diazepam AdvReac Mild "MAKES HIM Verified 01/05/20 13:17 WILD" Consultations 01/05/20 13:01 Consult Urology Stat ED Decision to Admit Stat 01/05/20 16:40 Consult Case Management - Discharge Planning Routine Consult Urology Routine Ordered Studies 01/05/20 10:51 US scrotum/testicle Stat 01/05/20 11:58 CT abd pelvis IV con only Stat Hospital Course (1) Epididymoorchitis: - Failed outpatient abx with cipro and macrobid, Continue on IV antibiotics of zosyn and doxycycline to cover micro as well as pulmonary with aspiration pneumonia. - Testicular US reviewed as well as abd/pelvis CT - Consult urology - Dr. Almonte - Recommend scrotal elevation when sitting/laying flat, Ice (20 mins on/20 mins off) when acutely swollen or tender, Heating Pad (20 mins on/20 mins off) when sore, and avoidance of injury/protection when active. - Leukocytosis improving - To complete at least 10 days of Bactrim at discharge per discussion with urology (2) Pyocele: - Hydrocele vs pyocele - treating with IV antibiotics as above - Urology consult - feels it is a complex hydrocele (3) Proctocolitis: - As per imaging, pt with chronic constipation, will order bowel regimen - mother reports gives for suppositories daily to assist in BMs. May continue if no BM after 48 hrs, last BM was yesterday. (4) Aspiration pneumonia: - CT abd/pelvis shows bases of lung zabala with possible lipoid formation in the setting of aspiration pneumonia - pt mother reports having no sx of pneumonia even when diagnosed during past hospitalizations and found to have pna, so will order antibiotics as above with zosyn IV to cover anaerobes in this setting as well as . - Flutter, incentive spirometry, mucinex - Currently on room air, can use duonebs Q4 or Q2 prn - to complete 5 more days of doxycycline at discharge (5) Angelman syndrome: - Hx of such since , nonverbal, full assist, mother and father care for him at home as sole providers. Brother also helps occasionally. (6) MGUS (monoclonal gammopathy of unknown significance): - Hx of such (7) Anemia: - stable (8) Seizure disorder: - Hx of such, continue lamotrigine 100 mg BID - Stable (9) GERD without esophagitis: - Continue omeprazole 40 mg QPM (10) Chronic back pain: - Hx of such, continue tramadol 50 mg TID prn (11) Scoliosis: - Noted stable DVT ppx: - morro roberto subq CODE: Full Total Time Total Time Spent Total Time Spent (In Minutes): greater than 30 minutes Discharge Plan Discharge Items Patient Disposition: Home - Self-Care Reason For Visit: EPIDIDYMOORCHITIS, LEFT HYDROCELE/PYOCELE Discharge Diagnosis: Epididymoorchitis, hydrocele, pneumonia Activity: Resume your previous activity Non-emergency contact: Primary Care Provider Call non-emergency contact if: you have any medication questions, your symptoms worsen, your pain is not controlled and you have a fever Follow-up/Referrals: Becki Cronin DO [Primary Care Provider] - (follow up one week ) Lauri Almonte DO [Physician] - 01/19/20 12:40 pm (follow up one week /TELEPHONE VISIT SET UP YASMANI MANZANO MADE F/U APPT WITH DR ALMONTE 01/16/20 @ 1019 MOTHER WILL ALSO CALL DR CRONIN FOR F/U PCP VISIT) Diet: Heart Healthy Addtl Attending Provider Instructions: (1) Epididymoorchitis: You will need to complete 10 more days of Bactrim taken twice per day Recommend scrotal support when ambulating, Scrotal elevation when sitting/laying flat, Ice (20 mins on/20 mins off) when acutely swollen or tender, Heating Pad (20 mins on/20 mins off) when sore, and avoidance of injury/protection when active. (2) Proctocolitis: Some inflammation was seen in the large intestines likely due to constipation. Continue with bowel regimen. Last bowel movement was 01/05. Aim for a bowel movement a day. If you are not seeing one per day please call your primary care provider for further bowel regimen adjustments. (3) Aspiration pneumonia: Continue with 5 more days of doxycycline Pending Studies at Discharge: No Stand-Alone Forms: [employer], Smoking Cessation Medications and DC Order Prescriptions: New polyethylene glycol 3350 [Miralax] 17 gram Powder In Packet 17 g PO DAILY Qty: 30 RF: 0 bisacodyl 10 mg Suppository 10 mg NM DAILY PRN (Reason: constipation) Qty: 30 RF: 0 bisacodyl 5 mg Tablet,Delayed Release (Dr/Ec) 5 mg PO DAILY Qty: 30 RF: 0 sulfamethoxazole-trimethoprim [Bactrim DS] 800-160 mg tablet 1 tab PO BID Qty: 20 RF: 0 doxycycline hyclate 100 mg capsule 100 mg PO BID 5 Days Qty: 10 RF: 0 Continued baclofen 10 mg tablet 10 mg PO .COMPLEX Qty: 60 RF: 11 tramadol 50 mg tablet 50 mg PO TID PRN (Reason: pain) Qty: 90 RF: 0 zolpidem 10 mg tablet 10 mg PO HS Qty: 30 RF: 0 Wheelchair (Manual) Device See Rx Instructions .ROUTE .COMPLEX Qty: 1 RF: 0 lamotrigine 100 mg tablet 100 mg PO BID Qty: 60 RF: 11 ondansetron 8 mg tablet,disintegrating 8 mg PO Q8H PRN (Reason: Nausea) RF: 0 meloxicam 15 mg tablet 15 mg PO QAM RF: 0 clonazepam 0.5 mg tablet 0.5 mg PO TID RF: 0 omeprazole 40 mg capsule,delayed release(DR/EC) 40 mg PO QPM RF: 0 Discontinued ciprofloxacin HCl [Cipro] 500 mg tablet 500 mg PO BID 7 Days Qty: 14 RF: 0 nitrofurantoin monohyd/m-cryst [Macrobid] 100 mg capsule 100 mg PO BID 7 Days Qty: 14 RF: 0 Discharge Orders: Discharge Order (Routine); Ordered 01/07/20 Ordered By: Geni Smith Admission Data Admit Date/Time: 01/05/20 13:50 Attending Provider: Roman Bolanos Admit Provider: Robel Garcia Primary Care Provider: Becki Cronin Other Providers: Lauri Almonte ; Robel Garcia Other Interventions: Discharge Summary Assessment (RN) Last Done: 01/07/20 11:09 Coding Level of Care Code D/C Day Management >30 mins Diagnoses Epididymoorchitis N45.3 Pyocele N43.1 Proctocolitis K52.9 Aspiration pneumonia J69.0 Aspiration pneumonia type: unspecified Laterality: unspecified laterality Lung location: unspecified part of lung Angelman syndrome Q93.51 MGUS (monoclonal gammopathy of unknown significance) D47.2 Anemia D64.9 Seizure disorder G40.909 GERD without esophagitis K21.9 Chronic back pain M54.9; G89.29 Scoliosis M41.9
== END 2020-01-07 11:55 | disposition home or self-care (01) ==
LOC: ED 10:41 → 3W 13:50 → SUATTDRO 13:50 → INTOOBSV 13:50 → 3W 16:19